=== PATIENT | male | born 1940 | race Caucasian/White ===

== ENCOUNTER 2016-12-10 13:16 | Emergency (ER) | payer MEDICARE, OTHER ==
[2016-12-10 13:31] VITALS: BP 161/60
--- NOTE | 2016-12-10 14:54 | XRAY Preliminary Report ---
Exam: XR Knee 4 View RT IMPRESSION: No significant new or acute bony abnormality. [facility] SITE ID: [id number]
--- NOTE | 2016-12-10 15:02 | XRAY Report ---
EXAM: RIGHT KNEE RADIOGRAPHY EXAM DATE: 12/10/2016 02:37 PM. CLINICAL HISTORY: Medial femoral condyle pain since direct trauma to the knee 10 days ago. COMPARISON: 01/19/2007. TECHNIQUE: 4 views. FINDINGS: Bones: Normal. No fractures or bone lesions. Joints: Normal. No effusion. No subluxations. Soft Tissues: Interval resolution of distal quadriceps tendon edema. Interval development of large reactive osteoph yte inferior patella tendon insertion anterior tibial apophysis due to remote mechanical stress. IMPRESSION: No significant nor acute bony abnormality. [facility] Referring Provider Line: [phone] SITE ID: [id number]
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
--- NOTE | 2016-12-10 15:14 | ED Physician Documentation ---
PD HPI LOWER EXT INJURY - Stated complaint Stated Complaint: R KNEE,SHLDR, ANKLE INJURY - Chief complaint Chief Complaint: Ext Problem - History obtained from History obtained from: Patient - History of Present Illness PD HPI LOW EXT INJURY LOCATION: Right, Knee Type of injury: Fall Where injury occurred: Home Timing - onset: How many weeks ago (1) Timing - duration: Weeks (1) Timing - details: Abrupt onset, Still present Improved by: Rest, Immobilization Worsened by: Moving, Palpating Associated symptoms: Swelling. No: Weakness, Numbness Contributing factors: No: Anticoagulated Similar symptoms before: Has not had sx before Recently seen: Not recently seen PD PAST MEDICAL HISTORY - Past Medical History Past Medical History: Yes Cardiovascular: Hypertension, High cholesterol Endocrine/Autoimmune: Type 2 diabetes HEENT: Chronic vision loss Psych: Post traumatic stress disorder - Past Surgical History Past Surgical History: Yes HEENT: Tonsil/Adenoidectomy - Present Medications Home Medications: Ambulatory Orders Medication Instructions Recorded Confirmed Aspirin [Aspir 81] 81 mg PO 07/18/13 07/18/13 Atenolol 25 mg PO DAILY 07/18/13 07/18/13 Atorvastatin [Lipitor] 07/18/13 07/18/13 buPROPion [Wellbutrin Sr] 1 tab DAILY 07/18/13 07/18/13 - Allergies Allergies/Adverse Reactions: Allergies Allergy/AdvReac Type Severity Reaction Status Date / Time influenza virus vaccine, AdvReac Severe Unknown Verified 12/10/16 13:31 specific [Influenza Virus Vacc,Specific] - Social History Does the pt smoke?: Yes Smoking Status: Current every day smoker Does the pt drink ETOH?: Yes Does the pt have substance abuse?: No - Immunizations Immunizations are current?: No Results - Vitals Vitals: Vital Signs - 24 hr 12/10/16 13:26 Temperature 36.7 C Heart Rate 69 Respiratory 18 Rate Blood Pressure 161/60 H O2 Saturation 98 Oxygen O2 Source Room air Departure - Departure Disposition: 01 Home, Self Care Clinical Impression: Right knee sprain Qualifiers: Encounter type: initial encounter Involved ligament of knee: unspecified ligament Qualified Code(s): S83.91XA - Sprain of unspecified site of right knee , initial encounter Condition: Stable Instructions: ED Sprain Knee Follow-Up: [facility] [Provider Group]
== END 2016-12-10 15:17 | disposition home or self-care (01) ==
LOC: ED 13:16
DX: S83.91XA Sprain of unspecified site of right knee, initial encounter (principal); W17.89XA Other fall from one level to another, initial encounter; Y92.017 Garden or yard in single-family (private) house as the place of occurrence of the external cause; I10 Essential (primary) hypertension; E78.00 Pure hypercholesterolemia, unspecified; E11.9 Type 2 diabetes mellitus without complications; Z79.82 Long term (current) use of aspirin; F17.200 Nicotine dependence, unspecified, uncomplicated
CPT/HCPCS: 29530; 99283

== ENCOUNTER 2017-03-21 08:55 | Outpatient (CLI) | payer OTHER ==
--- NOTE | 2017-03-21 16:23 | MRI Report ---
EXAM: MR ABDOMEN WITHOUT CONTRAST (MR ADRENALS) EXAM DATE: 03/21/2017 09:06 AM. CLINICAL HISTORY: Small left adrenal nodule seen on CT. COMPARISON: CT abdomen pelvis 07/16/2016 from [facility]. TECHNIQUE: Multiplanar breath-hold T1 and T2 sequences obtained through the adrenals and abdomen on a n MR scanner. Thin-section, in-phase and [id number] sequence obtained through the adrenal glands. N o intravenous contrast given. FINDINGS: Adrenal Glands: Right: Normal. Left: Stable 9 mm thickening of the body. There is considerable signal loss on opposed-phase gradient echo compatible with presence of intralesional lipid. No suspicious features identified. Liver: Few discrete tiny T2 hyperintensities in segment 4A, likely cysts or hemangiomas. A tiny cyst in segment 6. Decreased parenchymal signal on opposed-phase gradient echo suggests mild steatosis. Th e dome is incompletely imaged. Gallbladder/Bile Ducts: No filling defect or gallbladder wall thickening. No ductal dilatation. Pancreas: No gross abnormality identified. Spleen: No splenomegaly. Small accessory splenule is Kidneys: Normal size without hydronephrosis or obviously suspicious lesion. Other: No obstruction or acute intestinal abnormality identified. No free fluid. No abdominal aortic aneurysm. IMPRESSION: 1. Consistent with a small lipid-rich left adrenal adenoma. Normal right adrenal. 2. Mild hepatic steatosis. Tiny liver cysts and/or hemangiomas. [facility] Referring Provider Line: [phone] SITE ID: [id number]
== END 2017-03-21 08:56 | disposition home or self-care (01) ==
LOC: DI 08:55
PROVIDERS: ATTEND Nurse Practitioner Adult Health
DX: R93.5 Abnormal findings on diagnostic imaging of other abdominal regions, including retroperitoneum (principal); K76.0 Fatty (change of) liver, not elsewhere classified; K76.89 Other specified diseases of liver
CPT/HCPCS: 74181

== ENCOUNTER 2019-12-25 09:48 | Emergency (ER) | payer OTHER ==
[2019-12-25] MEDS ORDERED: ACETAMINOPHEN 325 MG TABLET PO STA (10:56)
[2019-12-25] MEDS ORDERED: LIDOCAINE 2% 50 ML MDV SUBQ STA ×2 (11:17→12:17)
[2019-12-25] MEDS ORDERED: LIDOCAINE-MPF 2% 5 ML VIAL SUBQ STA (11:20)
--- NOTE | 2019-12-25 11:34 | XRAY Report ---
PROCEDURE: Finger(s) LT INDICATIONS: thumb injury, log splitter TECHNIQUE: AP hand, 2 views of the first finger(s) acquired. COMPARISON: None FINDINGS: Bones: There is a comminuted fracture with moderate displacement involving the distal aspect of the distal phalanx of the thumb. No additional fractures can be seen. Age-appropriate degenerative changes are seen. No suspicious lytic or blastic lesions are seen. Soft tissues: Associated soft tissue injury is seen. IMPRESSION: Comminuted, moderately displaced fracture of the distal aspect of the distal phalanx of the thumb. Reviewed by: Fish Velazquez MD on 12/25/2019 10:32 AM МАРИНА Approved by: Fish Velazquez MD on 12/25/2019 10:32 AM МАРИНА Station ID: [id number]
[2019-12-25] MEDS ORDERED: LIDOCAINE-MPF 2% 5 ML VIAL ONE (12:28)
[2019-12-25] MEDS ORDERED: MUPIROCIN 2% OINT 1 GM TOP STA (12:36)
[2019-12-25] MEDS ORDERED: cephALEXin 250 MG CAPSULE PO STA (12:36)
--- NOTE | 2019-12-25 12:41 | ED Physician Documentation ---
PD HPI UPPER EXT INJURY - Stated complaint Stated Complaint: R THUMB LAC - Chief complaint Chief Complaint: Ext Problem - History obtained from History obtained from: Patient - History of Present Illness Location: Right, Finger (thumb) Type of injury: Crush (he got tip of thumb caught in log splitter, with lifting of the nail and pain at the tip of thumb. He put tight bandage on it and left it until today. Today noted the nailbed distorted and some bleeding after taking bandage off, and tip seems distorted. No purulence.) Where injury occurred: Home (2 days ago) Timing - onset: How many days ago (2) Timing - duration: Days (2) Timing - details: Abrupt onset Worsened by: Moving, Palpating Associated symptoms: Numbness (at tip of the thumb.), Swelling. No: Weakness Contributing factors: No: Anticoagulated Similar symptoms before: Has not had sx before Review of Systems Constitutional: denies: Fever, Chills Nose: denies: Rhinorrhea / runny nose, Congestion Throat: denies: Sore throat Respiratory: denies: Cough Skin: reports: Laceration (s) (end of right thumb) PD PAST MEDICAL HISTORY - Past Medical History Cardiovascular: Hypertension, High cholesterol Endocrine/Autoimmune: Type 2 diabetes HEENT: Chronic vision loss Psych: Post traumatic stress disorder - Past Surgical History Past Surgical History: Yes HEENT: Tonsil/Adenoidectomy - Present Medications Home Medications: Ambulatory Orders Medication Instructions Recorded Confirmed Aspirin [Aspir 81] 81 mg PO 07/18/13 07/18/13 Atorvastatin [Lipitor] 07/18/13 07/18/13 atenoloL [Atenolol] 25 mg PO DAILY 07/18/13 07/18/13 buPROPion [Wellbutrin Sr] 1 tab DAILY 07/18/13 07/18/13 Cephalexin [Keflex] 500 mg PO TID #21 capsule 12/25/19 Mupirocin 1 applic TP TID #15 g 12/25/19 - Allergies Allergies/Adverse Reactions: Allergies Allergy/AdvReac Type Severity Reaction Status Date / Time influenza virus vaccine, AdvReac Severe Unknown Verified 12/25/19 10:14 specific [Influenza Virus Vacc,Specific] - Social History Does the pt smoke?: Yes Smoking Status: Current every day smoker Does the pt drink ETOH?: Yes Does the pt have substance abuse?: No - Immunizations Immunizations are current?: No PD ED PE NORMAL - Vitals Vital signs reviewed: Yes - General General: Alert and oriented X 3, Well developed/nourished - Derm Derm: Warm and dry - Extremities Extremities: Other (right thumb with laceration on dorsal aspect through base of nailbed. There is blood under the nail and looseness of the nail on the bed. There is distal swelling. The very tip of thumb seems to tip palmar a bit. Good color of the tip, but decreased sensation. He is able to flex/extend at IP joint. ) - Neuro Neuro: Alert and oriented X 3, No motor deficit Results - Vitals Vitals: Vital Signs - 24 hr 12/25/19 12/25/19 10:02 13:10 Temperature 36.8 C Heart Rate 60 55 L Respiratory 18 18 Rate Blood Pressure 163/56 H 162/59 H O2 Saturation 99 99 Oxygen O2 Source Room air - Rads (name of study) right thumb xray Radiology: Prelim report reviewed (distal phalanx fracture. No involvement at the IP. No FB. Soft tissue swelling noted. ), See rad report Procedures - Laceration (location) right distal thumb Length in cm: 2 Wound type: Curved, Into subcut fat, Clean Neurovascular status: Motor intact, Vascular intact. No: Sensory intact (less at tip of thumb, normal on palmar pad.) Tendon involvement: Tendon intact Anesthesia: Lidocaine 2% (digital block) Wound Preparation: Irrigated copiously NS (I lifted the loose nail and cleansed the nailbed well. No FB seen. Trimmed rough skin edges. I then tucked the nail back into nychial fold and sutured the nail proximally to anchor it. The edges of the nailbed sutured for alignment. The shape of the thumb was returned to normal appearance.) Skin layer closure: Nylon, Interrupted, Size #-0 - enter number (4), Sutures - enter # (5) Other: Patient tolerated well, No complications, Tetanus UTD Complexity: Simple PD MEDICAL DECISION MAKING - ED course Complexity details: reviewed results, considered differential, d/w patient Departure - Departure Disposition: 01 Home, Self Care Clinical Impression: Thumb laceration Qualifiers: Encounter type: initial encounter Damage to nail status: with damage Foreign body presence: without foreign body Laterality: right Qualified Code(s): S61.111A - Laceration without foreign body of right thumb with damage to nail, initial encounter Phalanx, distal fracture of finger Qualifiers: Encounter type: initial encounter Finger: thumb Fracture type: open Fracture alignment: displaced Laterality: right Qualified Code(s): S62.521B - Displaced fracture of distal phalanx of right thumb, initial encounter for open fracture Condition: Stable Record reviewed to determine appropriate education?: Yes Instructions: ED Fx Finger Open Follow-Up: Mook Constantino MD [Provider Admit Priv/Credential] - Prescriptions: Cephalexin [Keflex] 500 mg PO TID #21 capsule Mupirocin 1 applic TP TID #15 g Comments: it is okay to wash and shower. Clean off the wound twice a day with soap and water, or peroxide and water. Apply some antibiotic ointment to it to keep it moist. Also to watch for signs of infection such as purulence, redness or increasing pain. Return to your primary care or the ER at the specified time for suture removal. Suture removal in 10-14 days. You will lose this fingernail as it is completely loosened, but it is sutured in place in order to hold structure and shape for the healing tissue right now. A new fingernail is likely to grow back in subsequently. Use topical antibiotic mupirocin lightly to the wound once or twice daily. Tylenol/ ibuprofen as needed for pains. Cephalexin antibiotic as directed for a week. Use the finger splint as needed for protection and comfort. Follow-up with your primary care or orthopedics to ensure the end of the thumb is healing up adequately. Recheck if signs of infection. Discharge Date/Time: 12/25/19 13:10
[2019-12-25 13:11] VITALS: BP 162/59
== END 2019-12-25 13:10 | disposition home or self-care (01) ==
LOC: ED 09:48
DX: S62.521B Displaced fracture of distal phalanx of right thumb, initial encounter for open fracture (principal); W31.89XA Contact with other specified machinery, initial encounter; Y93.89 Activity, other specified; Y92.009 Unspecified place in unspecified non-institutional (private) residence as the place of occurrence of the external cause; I10 Essential (primary) hypertension; E11.9 Type 2 diabetes mellitus without complications; F17.200 Nicotine dependence, unspecified, uncomplicated
CPT/HCPCS: 11760; 73140; 99283; A9270

== ENCOUNTER 2020-01-05 12:26 | Emergency (ER) | payer OTHER ==
[2020-01-05 12:39] VITALS: BP 123/49
--- NOTE | 2020-01-05 12:57 | ED Physician Documentation ---
History of Present Illness - Stated complaint Stated Complaint: STITCH REMOVAL - Chief complaint Chief Complaint: Laceration - History obtained from History obtained from: Patient, Other (chart) - Additonal information Additional information: 79-year-old male returns to the emergency department for suture removal and evaluation of a right thumb injury. He was seen in this emergency department 11 days ago after a crush injury to the right thumb that was sustained during use of a log splitter. The injury included elevation of the nailbed and subsequent x-ray showed a distal phalanx fracture. The provider at the time closed the wound and sutured the nailbed to the wound. The patient misunderstood and lost his discharge instructions and did not remove the initial dressing at all. He did however complete a course of Keflex. Patient denies any fevers but reports that he feels like his thumb is asleep. Review of Systems Constitutional: reports: Reviewed and negative Ears: reports: Reviewed and negative Nose: reports: Reviewed and negative Throat: reports: Reviewed and negative Cardiac: reports: Reviewed and negative Respiratory: reports: Reviewed and negative GI: reports: Reviewed and negative : reports: Reviewed and negative Musculoskeletal: reports: Extremity pain (right thumb) Neurologic: reports: Reviewed and negative PD PAST MEDICAL HISTORY - Past Medical History Cardiovascular: Hypertension, High cholesterol Endocrine/Autoimmune: Type 2 diabetes HEENT: Chronic vision loss Psych: Post traumatic stress disorder - Past Surgical History Past Surgical History: Yes HEENT: Tonsil/Adenoidectomy - Present Medications Home Medications: Ambulatory Orders Medication Instructions Recorded Confirmed Aspirin [Aspir 81] 81 mg PO 07/18/13 07/18/13 Atorvastatin [Lipitor] 07/18/13 07/18/13 atenoloL [Atenolol] 25 mg PO DAILY 07/18/13 07/18/13 buPROPion [Wellbutrin Sr] 1 tab DAILY 07/18/13 07/18/13 Cephalexin [Keflex] 500 mg PO TID #21 capsule 12/25/19 Mupirocin 1 applic TP TID #15 g 12/25/19 - Allergies Allergies/Adverse Reactions: Allergies Allergy/AdvReac Type Severity Reaction Status Date / Time influenza virus vaccine, AdvReac Severe Unknown Verified 01/05/20 12:35 specific [Influenza Virus Vacc,Specific] - Social History Does the pt smoke?: Yes Smoking Status: Current every day smoker Does the pt drink ETOH?: Yes Does the pt have substance abuse?: No - Immunizations Immunizations are current?: No PD ED PE EXPANDED - Extremities Extremities: Right finger(s) (Right thumb mildly swollen at DIP and beyond. 5 sutures are noted in place and were easily removed. The skin proximal to the nailbed is somewhat macerated with a clear mucoid eschar that smells foul. The nail itself is ecchymotic but firmly attached to the nail bed. + flexion/extens ion at DIP ) Results - Vitals Vitals: Vital Signs - 24 hr 01/05/20 12:35 Temperature 37.1 C Heart Rate 52 L Respiratory 16 Rate Blood Pressure 123/49 L O2 Saturation 97 Oxygen O2 Source Room air - Rads (name of study) right thumb Radiology: Final report received (Improved anatomic alignment of the distal tuft comminuted fracture from 11 days ago with imaging not showing callus bridging the fracture margins at this time. Follow-up as anticipated) PD MEDICAL DECISION MAKING - ED course Complexity details: reviewed results, re-evaluated patient, considered differential, d/w patient ED course: 79-year-old male presents to the emergency department to have the sutures removed from the crush injury of his right thumb sustained 11 days ago. He did have an associated tuft fracture of that thumb. Unfortunately the original dressing was left in place but patient did complete a full course of antibiotics. On reevaluation he does have good function of the thumb. Though it is tender and swollen, it is not erythematous and he has had no fevers will defer further antibiotics at this time. Will recommend this gentleman wash the thumb daily with warm soap and water and apply antibiotic ointment. I will write a referral for him to be seen in orthopedics in follow-up. And a temporary thumb splint was also provided for protection of the fracture Departure - Departure Disposition: 01 Home, Self Care Clinical Impression: Visit for suture removal Phalanx, distal fracture of finger Qualifiers: Encounter type: sequela Finger: thumb Fracture type: open Fracture alignment: displaced Laterality: right Qualified Code(s): S62.521S - Displaced fracture of distal phalanx of right thumb, sequela Follow-Up: [facility] [Provider Group] Comments: The x-ray of your thumb shows better alignment of the fracture. I would like you to start gently washing the thumb every day with warm soap and water and then applying antibiotic ointment over your wound. I would like you to wear the thumb splint provided for protection. I would like you to schedule close follow-up with the orthopedics department for reevaluation of this thumb wound and fracture. I also recommend close follow-up with your primary care doctor to ensure the wound is healing normally. If you develop fevers, have increased pain any milky drainage or concerns of infection return to the ER for a second look
--- NOTE | 2020-01-05 13:34 | XRAY Report ---
PROCEDURE: Finger(s) RT INDICATIONS: fx, wound healing TECHNIQUE: AP hand, 3 views of the first finger(s) acquired. COMPARISON: Prior right hip plain films 12/25/2019. Please note that the original imaging from 12/24 was incorrectly labeled "left" which is being corrected. FINDINGS: Bones: No fractures or dislocations. No suspicious bony lesions. Note is made of the right hand fi rst digit distal phalanx tuft fracture malalignment being improved, from the comparison 11 days ago. No callus bridging the fracture planes is yet present. Soft tissues: No suspicious soft tissue calcifications. IMPRESSION: Improved anatomic alignment of the distal tuft comminuted fracture from 11 days ago, right thumb, wit h imaging not showing callus bridging the fracture margins at this time. Follow-up is anticipated. Note: Original plain films 11 days ago were mislabeled as representing the left hand. This is being c orrected. Reviewed by: Julito Zhou MD on 01/05/2020 1:32 PM PDT Approved by: Julito Zhou MD on 01/05/2020 1:32 PM PDT Station ID: [id number]
== END 2020-01-05 14:11 | disposition home or self-care (01) ==
LOC: ED 12:26
DX: S62.521D Displaced fracture of distal phalanx of right thumb, subsequent encounter for fracture with routine healing (principal); W31.89XD Contact with other specified machinery, subsequent encounter; I10 Essential (primary) hypertension; E11.9 Type 2 diabetes mellitus without complications; F17.200 Nicotine dependence, unspecified, uncomplicated
CPT/HCPCS: 73140; 99281; 99283

== ENCOUNTER 2020-05-30 10:28 | Outpatient (CLI) | payer MEDICARE, OTHER ==
[2020-05-30 15:10] LABS: BASOPHILS % (AUTO) 0.4 %; EOSINOPHILS # (AUTO) 0.1 10^3/uL (0.0-0.7); EOSINOPHILS % (AUTO) 1.8 %; HCT - HEMATOCRIT 45.3 % (42.0-52.0); HGB - HEMOGLOBIN 14.1 g/dL (14.0-18.0); LYMPHOCYTES % (AUTO) 28.4 %; MEAN CORPUSCULAR HEMOGLOBIN 30.5 pg (27.0-31.0); MEAN CORPUSCULAR HGB CONC 31.1 g/dL (32.0-36.0); MEAN CORPUSCULAR VOLUME 97.8 fL (80.0-94.0); MEAN PLATELET VOLUME 11.4 fL (7.4-11.4); MONOCYTES # (AUTO) 0.9 10^3/uL (0.0-1.0); NEUTROPHILS % (AUTO) 56.1 %; PLT - PLATELET COUNT 216 10^3/uL (130-450); RED BLOOD COUNT 4.63 10^6/uL (4.70-6.10); RED CELL DISTRIBUTION WIDTH 12.4 % (12.0-15.0); WHITE BLOOD COUNT 7.2 x10^3/uL (4.8-10.8)
[2020-05-30 15:47] LABS: ALBUMIN 4.1 g/dL (3.2-5.5); ALBUMIN/GLOBULIN RATIO 1.9 (1.0-2.2); ALKALINE PHOSPHATASE 215 IU/L (42-121); ALT ALANINE AMINOTRANSFERASE 21 IU/L (10-60); AST ASPARTATE AMINOTRANSFERASE 20 IU/L (10-42); BILIRUBIN,TOTAL 1.3 mg/dL (0.2-1.0); BUN - BLOOD UREA NITROGEN 18 mg/dL (6-20); CALCIUM 9.2 mg/dL (8.5-10.3); CARBON DIOXIDE - CO2 29 mmol/L (21-32); CHLORIDE 104 mmol/L (101-111); CHOL/HDL RATIO 2.5 (<5.0); CHOLESTEROL 160 mg/dL; CREATININE 0.6 mg/dL (0.6-1.2); GFR - MDRD 130 (>89); GLUCOSE 134 mg/dL (70-100); HDL CHOLESTEROL 63 mg/dL; LDL CHOLESTEROL,CALCULATED 85 mg/dL; LDL/HDL RATIO 1.3 (<3.6); POTASSIUM 4.2 mmol/L (3.5-5.0); SODIUM 141 mmol/L (135-145); TOTAL PROTEIN 6.3 g/dL (6.7-8.2); TRIGLYCERIDES 61 mg/dL; VLDL CHOLESTEROL 12 mg/dL
[2020-05-30 19:02] LABS: ESTIMATED AVERAGE GLUCOSE 134 mg/dL (70-100); HEMOGLOBIN A1c% 6.3 % (4.27-6.07)
== END 2020-05-30 10:29 | disposition home or self-care (01) ==
LOC: LAB.S 10:28
PROVIDERS: ATTEND Internal Medicine
DX: I10 Essential (primary) hypertension (principal); E11.9 Type 2 diabetes mellitus without complications; Z12.5 Encounter for screening for malignant neoplasm of prostate
CPT/HCPCS: 36415; 80053; 80061; 83036; 85025; G0103; 83721; 84153

== ENCOUNTER 2020-06-22 14:51 | Outpatient (CLI) | payer MEDICARE, OTHER ==
[2020-06-22] MEDS ORDERED: IOPAMIDOL-300 50 ML VIAL ONE (15:32)
[2020-06-22] MEDS ORDERED: IOPAMIDOL-300 100 ML VIAL ONE (15:32)
[2020-06-22] MEDS ORDERED: IOPAMIDOL-300 50 ML VIAL PO ONE (20:34)
[2020-06-22] MEDS ORDERED: IOPAMIDOL-300 100 ML VIAL IVP ONE (20:34)
--- NOTE | 2020-06-23 11:05 | CT Report ---
PROCEDURE: PELVIS W INDICATIONS: PROSTATE CA CONTRAST: Oral and nonionic intravenous. TECHNIQUE: After the administration of nonionic contrast, 5 mm thick sections acquired from the iliac crests to the symphysis. 5 mm thick coronal and sagittal reformats were acquired. For radiation dose reductio n, the following was used: automated exposure control, adjustment of mA and/or kV according to patie nt size. COMPARISON: CT abdomen/pelvis with contrast 07/26/2016. FINDINGS: Image quality: Excellent. Peritoneum and bowel: Contrast enhanced bowel loops demonstrate normal wall thickness and caliber. No free fluid or air. Genitourinary: Bladder wall thickness is normal. Nodes and vessels: There are several mildly prominent left-sided periaortic lymph nodes distally, and within the presacral fat of the extraperitoneal space near the rectum there is a 1.4 cm AP 8mm trans verse enhancing lymph node suspicious for early metastatic disease, 05/31. At the right internal iliac node chain, 06/03, there is a hyperenhancing no which measures up to 1.2 cm AP and 1.6 cm transverse, likely involved with metastatic infiltration given the hyperenhancement pattern. An additional enhan cing node lies between the left external iliac artery and vein at the lower pelvic level seen on CT s eries 3 image 26. Iliac vessels demonstrate normal size and enhancement. Bones: Numerous bone lesions are present ranging from several millimeters to 3 x 5 cm, within the pel vis and lumbosacral spine. No osteolytic lesion is found. These lesions are osteoblastic.. Miscellaneous: No inguinal hernias. 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 No impen ding pathologic fracture is found. There are enlarged, rounded, and hyperenhancing lymph nodes scattered in several areas of the pelvic ravi chains. Ravi metastatic disease is likely present given this appearance. None of these nodes a ppear amenable to safe CT-guided biopsy. Reviewed by: Julito Zhou MD on 06/23/2020 11:04 AM PDT Approved by: Julito Zhou MD on 06/23/2020 11:04 AM PDT Station ID: [id number]
== END 2020-06-22 14:52 | disposition home or self-care (01) ==
LOC: DI 14:51
PROVIDERS: ATTEND Internal Medicine
DX: C61 Malignant neoplasm of prostate (principal); C79.51 Secondary malignant neoplasm of bone
CPT/HCPCS: 72193; Q9967

== ENCOUNTER 2020-09-08 18:30 | Outpatient (CLI) | payer MEDICARE, OTHER ==
--- NOTE | 2020-09-08 19:28 | Ultrasound Report ---
PROCEDURE: Duplex Ext Veins Right INDICATIONS: RLE SWELLING AND PAIN TECHNIQUE: Real-time imaging, as well as color and pulse Doppler interrogation, were performed of the lower extr emity deep veins from the inguinal ligament to the popliteal fossa. COMPARISON: None. FINDINGS: The deep veins are normally compressible, and free of intraluminal thrombus. Color and pu lse Doppler demonstrate normal phasic intraluminal flow. There is normal augmentation response to di stal compression maneuver. IMPRESSION: 1. No evidence of deep venous thrombosis in the right lower extremity. Reviewed by: Dawit Lares MD on 09/08/2020 7:26 PM PDT Approved by: Dawit Lares MD on 09/08/2020 7:26 PM PDT Station ID: [id number]
== END 2020-09-08 18:31 | disposition home or self-care (01) ==
LOC: DI 18:30
PROVIDERS: ATTEND Internal Medicine Hematology & Oncology
DX: R22.41 Localized swelling, mass and lump, right lower limb (principal); M79.661 Pain in right lower leg; C61 Malignant neoplasm of prostate; C79.9 Secondary malignant neoplasm of unspecified site

== ENCOUNTER 2020-12-18 13:38 | Outpatient (CLI) | payer MEDICARE, OTHER ==
--- NOTE | 2020-12-18 17:08 | DEXA Report ---
PROCEDURE: Dexa Spine and/or Hip INDICATIONS: HX OF CA TECHNIQUE: Dual energy x-ray absorptiometry (DXA) was performed on a [employer] System. Regions measur ed are the AP Spine, femoral neck, and if needed forearm. COMPARISON: None. FINDINGS: Lumbar Spine: Bone Mineral Density 1.870 g/cm/cm,T score 5.4, normal Left Hip: Bone Mineral Density 0.961 g/cm/cm,T score -1.0, normal Left Femoral Neck: Bone Mineral Density 0.884 g/cm/cm, T score -1.4, mild osteopenia (T score greater or equal to -1.0: NORMAL) (T score from -1.1 to -2.4: OSTEOPENIA) (T score less than or equal to -2.5 to: OSTEOPOROSIS) Impression: Mild osteopenia within the left femoral neck, borderline osteopenia in the left hip. Patients with diagnosis of osteoporosis or osteopenia should have regular bone mineral density assess ment. For those eligible for Medicare, routine testing is allowed once every 2 years. Testing frequ ency can be increased for patients who have rapidly progressing disease or for those who are receivin g medical therapy to restore bone mass. Reviewed by: Renae Roa MD on 12/18/2020 5:07 PM PDT Approved by: Renae Roa MD on 12/18/2020 5:07 PM PDT Station ID: [id number]
== END 2020-12-18 13:39 | disposition home or self-care (01) ==
LOC: DI 13:38
PROVIDERS: ATTEND Internal Medicine Hematology & Oncology
DX: C61 Malignant neoplasm of prostate (principal); C79.51 Secondary malignant neoplasm of bone; Z79.818 Long term (current) use of other agents affecting estrogen receptors and estrogen levels; M85.88 Other specified disorders of bone density and structure, other site

== ENCOUNTER 2020-12-22 21:06 | Outpatient (CLI) | payer MEDICARE, OTHER | END 2020-12-22 21:07 | disposition critical access hospital (66) | LOC: EMS 21:06 | DX: S49.92XA Unspecified injury of left shoulder and upper arm, initial encounter (principal); W10.9XXA Fall (on) (from) unspecified stairs and steps, initial encounter; Y92.009 Unspecified place in unspecified non-institutional (private) residence as the place of occurrence of the external cause | CPT/HCPCS: A0425; A0429 ==

== ENCOUNTER 2020-12-22 22:17 | Emergency (ER) | payer MEDICARE, OTHER ==
[2020-12-22] MEDS ORDERED: MORPHINE 2 MG/ML CARPUJECT IVP STA (22:36)
[2020-12-22] MEDS ORDERED: TETANUS/DIPHTHERIA/PERTUSSIS 0.5 ML SYRINGE IM ONE (22:36)
[2020-12-22] MEDS ORDERED: BACITRACIN ZINC OINT 1 PACKET TOP STA (22:36)
[2020-12-22 22:43] LABS: BASOPHILS % (AUTO) 0.2 %; EOSINOPHILS % (AUTO) 0.2 %; HCT - HEMATOCRIT 43.5 % (42.0-52.0); HGB - HEMOGLOBIN 14.2 g/dL (14.0-18.0); LYMPHOCYTES # (AUTO) 1.3 10^3/uL (1.5-3.5); LYMPHOCYTES % (AUTO) 8.9 %; MEAN CORPUSCULAR HEMOGLOBIN 31.2 pg (27.0-31.0); MEAN CORPUSCULAR HGB CONC 32.6 g/dL (32.0-36.0); MEAN CORPUSCULAR VOLUME 95.6 fL (80.0-94.0); MEAN PLATELET VOLUME 11.1 fL (7.4-11.4); MONOCYTES # (AUTO) 1.3 10^3/uL (0.0-1.0); MONOCYTES % (AUTO) 8.9 %; NEUTROPHILS # (AUTO) 11.3 10^3/uL (1.5-6.6); NEUTROPHILS % (AUTO) 80.1 %; PLT - PLATELET COUNT 211 10^3/uL (130-450); RED BLOOD COUNT 4.55 10^6/uL (4.70-6.10); RED CELL DISTRIBUTION WIDTH 12.1 % (12.0-15.0); WHITE BLOOD COUNT 14.1 x10^3/uL (4.8-10.8)
[2020-12-22] MEDS ORDERED: IOVERSOL 320 100 ML VIAL IVP ONE (22:45)
[2020-12-22 22:52] LABS: ALBUMIN 4.4 g/dL (3.2-5.5); BILIRUBIN,TOTAL 0.8 mg/dL (0.2-1.0); CALCIUM 8.9 mg/dL (8.5-10.3); CREATININE 0.8 mg/dL (0.6-1.2); ETOH - ETHANOL 179.3 mg/dL; INR 1.1 (0.8-1.2); PT - PROTHROMBIN TIME 11.8 secs (9.9-12.6); TOTAL PROTEIN 6.6 g/dL (6.7-8.2)
[2020-12-22 22:59] LABS: PARTIAL THROMBOPLASTIN TIME 29.6 secs (24.9-33.3)
[2020-12-22] MEDS ORDERED: SODIUM CHLORIDE 0.9% 1,000 ML IV STA (23:20)
--- NOTE | 2020-12-22 23:48 | CT Report ---
PROCEDURE: HEAD WO INDICATIONS: Head trauma, mod-severe TECHNIQUE: Noncontrast 4.5 mm thick angled axial sections acquired from the foramen magnum to the vertex. For r adiation dose reduction, the following was used: automated exposure control, adjustment of mA and/or kV according to patient size. COMPARISON: None FINDINGS: Image quality: Excellent. CSF spaces: Basal cisterns are patent. No extra-axial fluid collections. The ventricles are symmet yobani in size and shape. Brain: No intracranial bleeds or masses. There is cerebral volume loss for age, with resultant vent ricular and sulcal prominence. There are periventricular and deep white matter chronic small vessel ischemic changes. There is intracranial internal carotid artery and vertebral artery atherosclerosis . Skull and face: Calvarium and visualized facial bones appear intact, without suspicious lesions. Sinuses: Mild mucosal thickening in the maxillary sinuses bilaterally and scattered throughout the et hmoid air cells. 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 The mastoids are clear. IMPRESSION: No acute intracranial disease process. Reviewed by: Alyssa Morris MD, PhD on 12/22/2020 11:46 PM PDT Approved by: Alyssa Morris MD, PhD on 12/22/2020 11:46 PM PDT Station ID: [id number]
--- NOTE | 2020-12-22 23:52 | CT Report ---
PROCEDURE: CHEST W INDICATIONS: Chest trauma, penetrating CONTRAST: IV CONTRAST: Optiray 320 ml: 100 PO CONTRAST: *NO PO CONTRAST TECHNIQUE: After the administration of intravenous contrast, 1 mm axial images were acquired from the pulmonary apices through the posterior costophrenic angles. Axial 5 mm soft tissue kernel reconstructions were performed as well as 8 mm axial MIP and coronal and sagittal 5 mm reformations. For radiation dose reduction, the following was used: automated exposure control, adjustment of mA and/or kV according to patient size. COMPARISON: None. FINDINGS: Image quality: Excellent. Lungs and pleura: No acute air space opacities. No pleural effusions or pneumothorax. Central and peripheral airways are patent and normal in caliber. Mediastinum: Heart size is normal. Atherosclerotic calcifications noted in the aorta, great vessels and coronary vasculature. No pericardial effusion. No mediastinal or hilar adenopathy by size crite tawana. Thoracic aorta and central pulmonary arteries are normal in size. Esophagus is normal in calib er. No hiatal hernia. Bones and chest wall: Numerous sclerotic lesions scattered throughout the osseous skeleton compatible with osseous metastatic disease No vertebral body compression fractures. Spine degenerative disc dis ease and facet arthropathy are noted. No axillary or supraclavicular adenopathy by size criteria. T he thyroid is normal in size and there are no incidental findings.. Abdomen: Visualized upper abdominal solid organs appear normal. Upper abdominal bowel loops are nor mal in caliber. IMPRESSION: 1. Displaced fracture of the proximal left humerus. No additional acute traumatic injury. 2. Diffuse osseous metastatic disease. Reviewed by: Alyssa Morris MD, PhD on 12/22/2020 11:51 PM PDT Approved by: Alyssa Morris MD, PhD on 12/22/2020 11:51 PM PDT Station ID: [id number]
--- NOTE | 2020-12-22 23:55 | CT Report ---
PROCEDURE: CERVICAL SPINE WO INDICATIONS: Neck trauma, midline tenderness TECHNIQUE: Noncontrast 3 mm thick sections acquired from the skull base to the T4 level. Sagittal and coronal r eformats were then constructed. For radiation dose reduction, the following was used: automated exp osure control, adjustment of mA and/or kV according to patient size. COMPARISON: None. FINDINGS: Image quality: Excellent. Bones: No fractures or dislocations. Visualized superior ribs are intact. Numerous sclerotic lesion s scattered throughout the visualized osseous skeleton. Spine degenerative disc disease and facet art hropathy are noted. Soft tissues: Prevertebral soft tissues are normal in thickness. No paravertebral hematomas. No ap ical pneumothoraces. IMPRESSION: 1. No fracture. No acute osseous lesion. If there is continued clinical concern for pathology, then M RI should be considered for further evaluation. 2. Diffuse osseous metastatic disease. Reviewed by: Alyssa Morris MD, PhD on 12/22/2020 11:54 PM PDT Approved by: Alyssa Morris MD, PhD on 12/22/2020 11:54 PM PDT Station ID: [id number]
--- NOTE | 2020-12-22 23:59 | CT Report ---
PROCEDURE: Abdomen/Pelvis W INDICATIONS: Abdominal trauma, blunt CONTRAST: IV CONTRAST: Optiray 320 ml: 100 PO CONTRAST: *NO PO CONTRAST TECHNIQUE: After the administration of IV contrast, 5 mm thick sections acquired from the diaphragms to the symp hysis. 5 mm thick coronal and sagittal reformats were acquired. For radiation dose reduction, the f ollowing was used: automated exposure control, adjustment of mA and/or kV according to patient size. COMPARISON: 05/12/2015.. FINDINGS: Image quality: Excellent. ABDOMEN: Lung bases: Lung bases are clear. Heart size is normal. Solid organs: Liver and spleen are normal in size and enhancement. Punctate calcifications in the sp pal compatible with sequela of prior granulomatous disease. Gallbladder is within normal limits. B iliary system is non dilated. Pancreas enhances normally. No adrenal nodules. Kidneys demonstrate normal size and enhancement, without hydronephrosis. Peritoneum and bowel: Bowel loops demonstrate normal wall thickness and caliber. A few colonic diver ticuli without evidence of diverticulosis. No free fluid or air. Nodes and vessels: No retroperitoneal or mesenteric adenopathy by size criteria. Aorta and inferior vena cava are normal in size. Scattered atherosclerotic calcifications are noted in the abdominal an d pelvic vasculature. Miscellaneous: No ventral hernias. PELVIS: Genitourinary: Bladder wall thickness is normal. Miscellaneous: No inguinal adenopathy. Small bilateral fat-containing inguinal hernias. Bones: Numerous sclerotic lesions scattered throughout the osseous skeleton patible with metastatic d isease. No vertebral body compression fractures. Spine degenerative disc disease and facet arthropath y are noted. IMPRESSION: 1. No acute traumatic injury. 2. Diffuse thoracic metastatic disease. Reviewed by: Alyssa Morris MD, PhD on 12/22/2020 11:58 PM PDT Approved by: Alyssa Morris MD, PhD on 12/22/2020 11:58 PM PDT Station ID: [id number]
[2020-12-23 00:19] LABS: MUDS CUTOFF CONCENTRATIONS CUTOFF CONC BELOW:
[2020-12-23 00:20] LABS: BILIRUBIN,URINE NEGATIVE (NEGATIVE); GLUCOSE, URINE (UA) NEGATIVE (NEGATIVE); KETONES,URINE (UA) TRACE mg/dL (NEGATIVE); LEUKOCYTE ESTERASE, URINE NEGATIVE (NEGATIVE); NITRITE,URINE NEGATIVE (NEGATIVE); OCCULT BLOOD,URINE TRACE-LYSE (NEGATIVE); PROTEIN,URINE NEGATIVE (NEGATIVE); UROBILINOGEN,URINE 0.2 (NORMAL) E.U./dL (NORMAL)
[2020-12-23 00:21] LABS: CLARITY,URINE CLEAR (CLEAR)
[2020-12-23 00:31] LABS: AMPHETAMINE SCREEN,URINE NEGATIVE (NEGATIVE); BARBITURATE SCREEN,UR NEGATIVE (NEGATIVE); BENZODIAZEPINES SCREEN, URINE NEGATIVE (NEGATIVE); COCAINE SCREEN URINE NEGATIVE (NEGATIVE); METHADONE SCREEN, URINE NEGATIVE (NEGATIVE); METHAMPHETAMINES SCREEN, URINE NEGATIVE (NEGATIVE); OPIATE SCREEN, URINE POSITIVE (NEGATIVE); OXYCODONE SCREEN, URINE NEGATIVE (NEGATIVE); PROPOXYPHENE SCREEN, URINE NEGATIVE (NEGATIVE); THC CANNABINOID SCREEN, URINE NEGATIVE (NEGATIVE); TRICYCLIC ANTIDEPRESSANT,URINE NEGATIVE (NEGATIVE)
--- NOTE | 2020-12-23 00:55 | ED Physician Documentation ---
History of Present Illness - Stated complaint Stated Complaint: FELL - Chief complaint Chief Complaint: Ext Problem - History obtained from History obtained from: Patient - Additonal information Additional information: 80-year-old man presents status post fall down 15 stairs after drinking alcohol this evening. Patient has left shoulder pain that was sudden in onset after the fall, constant, aching, worse with range of motion, associated with deformity. Also with abrasion to right forehead and right elbow. Patient is alert and oriented x3. Review of Systems Ten Systems: 10 systems reviewed and negative Eyes: denies: Loss of vision, Discharge Ears: denies: Drainage/discharge Nose: denies: Epistaxis Cardiac: denies: Chest pain / pressure Respiratory: denies: Dyspnea Musculoskeletal: reports: Extremity pain PD PAST MEDICAL HISTORY - Past Medical History Past Medical History: Yes Cardiovascular: Hypertension, High cholesterol Endocrine/Autoimmune: Type 2 diabetes HEENT: Chronic vision loss Psych: Post traumatic stress disorder Other Past Medical History: cancer of prostate/lung/'back' - Past Surgical History Past Surgical History: Yes HEENT: Tonsil/Adenoidectomy - Present Medications Home Medications: Ambulatory Orders Medication Instructions Recorded Confirmed Aspirin [Aspir 81] 81 mg PO DAILY 07/18/13 12/08/20 Atorvastatin [Lipitor] 50 mg PO DAILY 07/18/13 12/08/20 atenoloL [Atenolol] 25 mg PO DAILY 07/18/13 12/08/20 buPROPion [Wellbutrin Sr] 1 tab DAILY 07/18/13 12/08/20 Mupirocin 1 applic TP TID #15 g 12/25/19 12/08/20 cephALEXin [Keflex] 500 mg PO TID #21 capsule 12/25/19 12/08/20 Bicalutamide [Casodex] 50 mg PO DAILY 07/03/20 12/08/20 Apalutamide [Erleada] 60 mg PO DAILY 07/05/20 12/08/20 - Allergies Allergies/Adverse Reactions: Allergies Allergy/AdvReac Type Severity Reaction Status Date / Time influenza virus vaccine, AdvReac Severe Unknown Verified 12/22/20 22:32 specific [Influenza Virus Vacc,Specific] - Social History Does the pt smoke?: Yes Smoking Status: Current every day smoker Does the pt drink ETOH?: Yes ETOH Use: Beer Does the pt have substance abuse?: No - Immunizations Immunizations are current?: No - POLST Patient has POLST: No PD ED PE NORMAL - Vitals Vital signs reviewed: Yes - General General: Alert and oriented X 3, No acute distress, Well developed/nourished - HEENT HEENT: Atraumatic, PERRL, EOMI - Neck Neck: Supple, no meningeal sign - Cardiac Cardiac: RRR - Respiratory Respiratory: No respiratory distress, Clear bilaterally - Abdomen Abdomen: Non tender, Non distended - Derm Derm: Normal color, Warm and dry - Extremities Extremities: Other (Left shoulder with palpable deformity. Tender with range of motion. 2+ bilateral radial pulses. Normal capillary refill, sensation, strength.) Results - Vitals Vitals: Vital Signs - 24 hr 12/22/20 12/22/20 12/22/20 22:26 22:31 22:38 Temperature 36.6 C 36.6 C 36.8 C Heart Rate 72 72 68 Respiratory 18 18 16 Rate Blood Pressure 155/77 H 155/77 H 137/48 H O2 Saturation 96 96 97 12/22/20 12/22/20 12/22/20 23:01 23:30 23:31 Temperature 36.9 C Heart Rate 69 68 66 Respiratory 16 16 18 Rate Blood Pressure 136/53 H 130/60 126/74 O2 Saturation 94 96 96 12/23/20 12/23/20 12/23/20 00:00 00:32 01:10 Temperature 36.7 C Heart Rate 68 84 70 Respiratory 16 18 17 Rate Blood Pressure 127/49 L 137/55 H 134/74 H O2 Saturation 98 95 95 12/23/20 12/23/20 12/23/20 01:30 02:00 02:40 Temperature 36.5 C Heart Rate 81 74 87 Respiratory 17 18 20 Rate Blood Pressure 146/61 H 146/61 H 149/52 H O2 Saturation 95 94 95 Oxygen O2 Source Room air - Labs Labs: Laboratory Tests 12/22/20 12/22/20 12/22/20 22:22 22:22 22:22 WBC 14.1 H RBC 4.55 L Hgb 14.2 Hct 43.5 MCV 95.6 H MCH 31.2 H MCHC 32.6 RDW 12.1 Plt Count 211 MPV 11.1 Neut # (Auto) 11.3 H Lymph # (Auto) 1.3 L Lassen # (Auto) 1.3 H Eos # (Auto) 0.0 Baso # (Auto) 0.0 Absolute Nucleated RBC 0.00 Nucleated RBC % 0.0 PT 11.8 INR 1.1 APTT 29.6 Sodium 138 Potassium 4.0 Chloride 102 Carbon Dioxide 23 Anion Gap 13.0 BUN 20 Creatinine 0.8 Estimated GFR (MDRD) 93 Glucose 133 H Calcium 8.9 Total Bilirubin 0.8 AST 26 ALT 18 Alkaline Phosphatase 55 Total Protein 6.6 L Albumin 4.4 Globulin 2.2 Albumin/Globulin Ratio 2.0 Lipase 61 H Urine Color Urine Clarity Urine pH Ur Specific Norman Urine Protein Urine Glucose (UA) Urine Ketones Urine Occult Blood Urine Nitrite Urine Bilirubin Urine Urobilinogen Ur Leukocyte Esterase Ur Microscopic Review Urine Culture Comments Urine Opiates Screen Ur Oxycodone Screen Urine Methadone Screen Ur Propoxyphene Screen Ur Barbiturates Screen Ur Tricyclics Screen Ur Phencyclidine Scrn Ur Amphetamine Screen U Methamphetamines Scrn U Benzodiazepines Scrn Urine Cocaine Screen U Cannabinoids Screen Ethyl Alcohol 179.3 12/23/20 00:17 WBC RBC Hgb Hct MCV MCH MCHC RDW Plt Count MPV Neut # (Auto) Lymph # (Auto) Lassen # (Auto) Eos # (Auto) Baso # (Auto) Absolute Nucleated RBC Nucleated RBC % PT INR APTT Sodium Potassium Chloride Carbon Dioxide Anion Gap BUN Creatinine Estimated GFR (MDRD) Glucose Calcium Total Bilirubin AST ALT Alkaline Phosphatase Total Protein Albumin Globulin Albumin/Globulin Ratio Lipase Urine Color YELLOW Urine Clarity CLEAR Urine pH 5.0 Ur Specific Norman 1.010 Urine Protein NEGATIVE Urine Glucose (UA) NEGATIVE Urine Ketones TRACE Urine Occult Blood TRACE-LYSE Urine Nitrite NEGATIVE Urine Bilirubin NEGATIVE Urine Urobilinogen 0.2 (NORMAL) Ur Leukocyte Esterase NEGATIVE Ur Microscopic Review NOT INDICATED Urine Culture Comments NOT INDICATED Urine Opiates Screen POSITIVE H Ur Oxycodone Screen NEGATIVE Urine Methadone Screen NEGATIVE Ur Propoxyphene Screen NEGATIVE Ur Barbiturates Screen NEGATIVE Ur Tricyclics Screen NEGATIVE Ur Phencyclidine Scrn NEGATIVE Ur Amphetamine Screen NEGATIVE U Methamphetamines Scrn NEGATIVE U Benzodiazepines Scrn NEGATIVE Urine Cocaine Screen NEGATIVE U Cannabinoids Screen NEGATIVE Ethyl Alcohol PD MEDICAL DECISION MAKING - ED course ED course: d/w Dr. Constantino re: proximal humerus fracture. pulses, sensation, strength intact to distal LUE. ortho rec to place sling, follow up with ortho clinic. d/w patient. return precautions given. Departure - Departure Disposition: 01 Home, Self Care Clinical Impression: Proximal humerus fracture, Fall (on) (from) other stairs and steps, initial encounter Condition: Good Instructions: Humerus Fx Follow-Up: Mook Constantino MD [Provider Admit Priv/Credential] - Comments: You were seen in the emergency department for a fall.You broke your left humerus, the bone of the arm at the shoulder. You also have cancer in your bones, as we discussed. You will need to follow-up with orthopedics clinic in 1 week. Wear your sling until that time. Discharge Date/Time: 12/23/20 02:50
--- NOTE | 2020-12-23 01:22 | XRAY Report ---
PROCEDURE: Shoulder 2 View LT INDICATIONS: fall down 15 stairs TECHNIQUE: 2 views of the shoulder were acquired. COMPARISON: None. FINDINGS: Bones: Fracture of the proximal left humerus. Distal fracture fragment is displaced proximally and me dially Soft tissues: No suspicious soft tissue calcifications. IMPRESSION: Proximal left humerus fracture. Reviewed by: Alyssa Morris MD, PhD on 12/23/2020 1:21 AM PDT Approved by: Alyssa Morris MD, PhD on 12/23/2020 1:21 AM PDT Station ID: [id number]
[2020-12-23] MEDS ORDERED: IOVERSOL 320 100 ML VIAL IVP ONE (01:26)
[2020-12-23 02:45] VITALS: BP 149/52
== END 2020-12-23 02:50 | disposition home or self-care (01) ==
LOC: EDUNIT# → ED 22:17
DX: S42.202A Unspecified fracture of upper end of left humerus, initial encounter for closed fracture (principal); S50.311A Abrasion of right elbow, initial encounter; S00.81XA Abrasion of other part of head, initial encounter; W10.9XXA Fall (on) (from) unspecified stairs and steps, initial encounter; Z23 Encounter for immunization; C79.51 Secondary malignant neoplasm of bone; Z85.46 Personal history of malignant neoplasm of prostate; I10 Essential (primary) hypertension; E11.9 Type 2 diabetes mellitus without complications; F17.200 Nicotine dependence, unspecified, uncomplicated; Z79.82 Long term (current) use of aspirin
CPT/HCPCS: 36415; 70450; 71260; 72125; 73030; 74177; 80053; 80306; 81003; 83690; 85025; 85610; 85730; 90471; 90715; 96374; 99283; 99284; A9270; G0480; Q9967; 80320; 81001; 87086

== ENCOUNTER 2021-01-11 10:18 | Outpatient (CLI) | payer MEDICARE, OTHER ==
--- NOTE | 2021-01-11 16:43 | XRAY Report ---
PROCEDURE: Shoulder 3 View LT INDICATIONS: 2-PART DISPLACED FX OF SURGICAL NECK OF L HUMERUS TECHNIQUE: 3 views of the shoulder were acquired. COMPARISON: X-ray left shoulder, 12/23/2020. FINDINGS: Bones: There is a comminuted humeral head and neck fracture with impaction and displacement. The alig nment is unchanged. There are foci of indeterminate sclerosis in the distal clavicle. Visualized rib s appear intact. Soft tissues: No suspicious soft tissue calcifications. IMPRESSION: 1. Comminuted humeral head and neck fracture with impaction and displacement. Overall, the alignment is stable when compared to last exam. 2. Sclerotic foci in the distal clavicle. If there is personal history of cancer, metastatic disease is a diagnostic consideration. Otherwise, these could represent bone islands in the scapula. Recommen d clinical correlation. Reviewed by: Sarah Kang MD on 01/11/2021 4:41 PM PDT Approved by: Sarah Kang MD on 01/11/2021 4:41 PM PDT Station ID: [id number]
== END 2021-01-11 23:59 ==
LOC: DI.N 10:18
PROVIDERS: ATTEND Orthopaedic Surgery
DX: S42.222D 2-part displaced fracture of surgical neck of left humerus, subsequent encounter for fracture with routine healing (principal); R93.6 Abnormal findings on diagnostic imaging of limbs

== ENCOUNTER 2021-02-12 09:45 | Outpatient (CLI) | payer MEDICARE, OTHER ==
--- NOTE | 2021-02-12 14:50 | XRAY Report ---
PROCEDURE: Shoulder 3 View LT INDICATIONS: DISPLACED FX OF LEFT PROXIMAL HUMERUS TECHNIQUE: 4 views of the shoulder were acquired. COMPARISON: 01/11/2021, 10/23/2020. FINDINGS: Bones: There is some healing at proximal humeral shaft fracture site with callus formation. Overall l eft shoulder alignment is unchanged from 01/11/2021 study. Moderate acromioclavicular joint and glenoh umeral joint osteoarthritic changes are again seen. No new fracture or dislocation. No suspicious zina ny lesions. Visualized ribs appear intact. Soft tissues: No suspicious soft tissue calcifications. IMPRESSION: Interval further healing at proximal humeral fracture site with stable shoulder alignmen t. No new fracture or dislocation. Moderate shoulder joint osteoarthritis. Reviewed by: Drew Wiley MD on 02/12/2021 2:49 PM PST Approved by: Drew Wiley MD on 02/12/2021 2:49 PM PST Station ID: [id number]
== END 2021-02-12 23:59 | disposition home or self-care (01) ==
LOC: DI.N 09:45
PROVIDERS: ATTEND Orthopaedic Surgery
DX: S42.222D 2-part displaced fracture of surgical neck of left humerus, subsequent encounter for fracture with routine healing (principal)

== ENCOUNTER 2021-03-27 12:18 | Outpatient (CLI) | payer MEDICARE, OTHER ==
--- NOTE | 2021-03-27 16:31 | XRAY Report ---
PROCEDURE: Shoulder 3 View LT INDICATIONS: F/U LEFT SHOULDER FX TECHNIQUE: 3 views of the shoulder were acquired. COMPARISON: X-ray shoulder 02/12/2021 FINDINGS: Bones: There is stable alignment of previously identified proximal humeral shaft fracture. No new sup erimposed fracture or dislocation is identified. Minimal callus formation is present although not sig nificantly changed compared to prior exam. Left clavicular sclerosis is again noted. In addition, th ere is questionable appearance of faint sclerotic foci within the scapula and humeral head. Visualize d ribs appear intact. Soft tissues: No suspicious soft tissue calcifications. IMPRESSION: 1. Stable appearance of humeral head/neck fracture without definitive appearance of new superimposed healing sclerosis. Alignment is unchanged. 2. Unchanged appearance of left clavicular sclerosis, as addition to faint foci of sclerosis within t he femoral head and scapula. They are indeterminate on the basis of this examination. This could repr esent a large bone island or potentially metastatic disease. If clinical concern persists, bone scan is recommended. Reviewed by: Renae Roa MD on 03/27/2021 4:30 PM [facility] Approved by: Renae Roa MD on 03/27/2021 4:30 PM [facility] Station ID: [id number]
== END 2021-03-27 12:19 | disposition home or self-care (01) ==
LOC: DI.WOS 12:18
PROVIDERS: ATTEND Orthopaedic Surgery
DX: S42.222D 2-part displaced fracture of surgical neck of left humerus, subsequent encounter for fracture with routine healing (principal); M85.812 Other specified disorders of bone density and structure, left shoulder

== ENCOUNTER 2021-04-26 09:11 | Outpatient (CLI) | payer MEDICARE, OTHER ==
--- NOTE | 2021-04-26 16:56 | XRAY Report ---
PROCEDURE: Shoulder 3 View LT INDICATIONS: LEFT SHOULDER FX TECHNIQUE: Views of the left shoulderwere acquired. COMPARISON: None. FINDINGS: Bones: Stable alignment of a previously identified proximal left humeral shaft/neck fracture. No sig nificant callus formation has occurred since 03/27/2021. There are degenerative changes of the acromio clavicular joint. Sclerotic foci in the left scapula and left distal clavicle are unchanged. Soft tissues: No suspicious soft tissue calcifications. IMPRESSION: 1. Stable appearance of a left humeral head/neck fracture with no significant interval bridging callu s formation. 2. Stable sclerotic foci in the left distal clavicle and in the scapula. Reviewed by: Leno Hart on 04/26/2021 4:55 PM PST Approved by: Leno Hart on 04/26/2021 4:55 PM PST Station ID: [id number]
== END 2021-04-26 09:12 | disposition home or self-care (01) ==
LOC: DI.WOS 09:11
PROVIDERS: ATTEND Orthopaedic Surgery
DX: S42.222D 2-part displaced fracture of surgical neck of left humerus, subsequent encounter for fracture with routine healing (principal); M19.012 Primary osteoarthritis, left shoulder

== ENCOUNTER 2021-06-07 08:45 | Outpatient (CLI) | payer MEDICARE, OTHER ==
--- NOTE | 2021-06-07 10:33 | XRAY Report ---
PROCEDURE: Shoulder 2 View LT INDICATIONS: SHOULDER FRACTURE TECHNIQUE: Views of the location were acquired. COMPARISON: None. FINDINGS: Bones: Stable alignment of a previously identified proximal left humeral shaft/neck fracture. No si gnificant callus formation is seen with persistent nonunion. The acromioclavicular joint has degenera tive changes. Sclerotic foci in the left scapula and left distal clavicle are unchanged. Soft tissues: No suspicious soft tissue calcifications. IMPRESSION: 1. Stable appearance of a left humeral head/neck fracture with no significant interval bridging callu s formation consistent with nonunion. 2. Stable sclerotic foci in the left distal clavicle and scapula. Reviewed by: Leno Hart on 06/07/2021 10:32 AM PDT Approved by: Leno Hart on 06/07/2021 10:32 AM PDT Station ID: [id number]
== END 2021-06-07 23:59 | disposition home or self-care (01) ==
LOC: DI.WOS 08:45
PROVIDERS: ATTEND Orthopaedic Surgery
DX: S42.222A 2-part displaced fracture of surgical neck of left humerus, initial encounter for closed fracture (principal)

== ENCOUNTER 2021-11-26 05:39 | Outpatient (CLI) | payer MEDICARE, OTHER | END 2021-11-26 05:40 | disposition critical access hospital (66) | LOC: EMS 05:39 | DX: R07.81 Pleurodynia (principal); M25.512 Pain in left shoulder | CPT/HCPCS: A0425; A0429 ==

== ENCOUNTER 2021-11-26 05:58 | Emergency (ER) | payer MEDICARE, OTHER ==
--- NOTE | 2021-11-26 06:12 | ED Physician Documentation ---
PD HPI Fall - Stated complaint Stated Complaint: LEFT SIDE CHEST INJURY GETTING WORSE - Chief complaint Chief Complaint: Trauma Ext - History obtained from History obtained from: Patient, EMS - History of Present Illness Mechanism of injury: Slipped Fall distance: Standing position Where injury occurred: Home Timing - onset: How many days ago (3) Injury(ies) location: Chest (left lateral ribs), Left Uppper Extremity (shoulder hurting more than baseline). No: Head, Neck Quality of pain: Aching, Sharp Associated symptoms: No: LOC, Weakness, Paresthesias Worsens with: Movement, Palpation Contributing factors: No: Anticoagulated, Intoxicated Similar symptoms before: Diagnosis (prior rib fractures. Has had prior left humeral shaft pathologic fracture.) Recently seen: Not recently seen Review of Systems Constitutional: denies: Fever, Chills Nose: denies: Rhinorrhea / runny nose, Congestion Throat: denies: Sore throat Cardiac: denies: Pedal edema Respiratory: reports: Dyspnea. denies: Cough, Wheezing GI: denies: Abdominal Pain, Bloody / black stool Skin: reports: Abrasion (s) (left elbow). denies: Laceration (s) Musculoskeletal: denies: Neck pain, Back pain Neurologic: denies: Focal weakness, Numbness PD PAST MEDICAL HISTORY - Past Medical History Cardiovascular: Hypertension, High cholesterol Endocrine/Autoimmune: Type 2 diabetes HEENT: Chronic vision loss Psych: Post traumatic stress disorder - Past Surgical History Past Surgical History: Yes HEENT: Tonsil/Adenoidectomy - Present Medications Home Medications: Ambulatory Orders Medication Instructions Recorded Confirmed Aspirin [Aspir 81] 81 mg PO DAILY 07/18/13 10/19/21 Atorvastatin [Lipitor] 50 mg PO DAILY 07/18/13 10/19/21 atenoloL [Atenolol] 25 mg PO DAILY 07/18/13 10/19/21 buPROPion [Wellbutrin Sr] 1 tab DAILY 07/18/13 10/19/21 Mupirocin 1 applic TP TID #15 g 12/25/19 10/19/21 cephALEXin [Keflex] 500 mg PO TID #21 capsule 12/25/19 10/19/21 Bicalutamide [Casodex] 50 mg PO DAILY 07/03/20 10/19/21 Apalutamide [Erleada] 60 mg PO DAILY 07/05/20 10/19/21 - Allergies Allergies/Adverse Reactions: Allergies Allergy/AdvReac Type Severity Reaction Status Date / Time influenza virus vaccine, AdvReac Severe Unknown Verified 11/26/21 06:13 specific [Influenza Virus Vacc,Specific] - Social History Does the pt smoke?: Yes Smoking Status: Current every day smoker Does the pt drink ETOH?: Yes Does the pt have substance abuse?: No - Immunizations Immunizations are current?: No - POLST Patient has POLST: No PD ED PE NORMAL - Vitals Vital signs reviewed: Yes - General General: Alert and oriented X 3, Well developed/nourished, Other (moderately uncomfrotable with movement and deep breathing. ) - HEENT HEENT: Atraumatic - Neck Neck: Supple, no meningeal sign, No bony TTP - Cardiac Cardiac: RRR, No murmur - Respiratory Respiratory: Clear bilaterally, Other (Tenderness in the anterolateral chest wall approximately ribs 7 through 10 nonfocal he. No crepitance or subcutaneous emphysema.) - Abdomen Abdomen: Soft, Non tender - Back Back: No CVA TTP, No spinal TTP - Derm Derm: Normal color, Warm and dry - Extremities Extremities: Other (The left elbow shows a partial-thickness skin pee ls/laceration of the left elbow which is bandaged. Full range of motion of the elbow without tenderness. Left shoulder has guarded range of motion and he does not want to lift it above 60 degrees.) - Neuro Neuro: Alert and oriented X 3, No motor deficit, No sensory deficit, Normal speech Results - Vitals Vitals: Vital Signs - 24 hr 11/26/21 11/26/21 11/26/21 06:00 06:11 07:02 Temperature 36.2 C L 36.8 C Heart Rate 57 L 55 L 54 L Respiratory 19 18 17 Rate Blood Pressure 155/56 H 155/56 H 135/50 H O2 Saturation 97 97 97 11/26/21 07:27 Temperature Heart Rate 54 L Respiratory 14 Rate Blood Pressure 151/63 H O2 Saturation 98 Oxygen O2 Source Room air - Labs Labs: Laboratory Tests 11/26/21 11/26/21 06:44 06:44 WBC 8.8 RBC 4.54 L Hgb 14.4 Hct 43.8 MCV 96.5 H MCH 31.7 H MCHC 32.9 RDW 12.2 Plt Count 162 MPV 11.1 Neut # (Auto) 6.2 Lymph # (Auto) 1.3 L Liberty # (Auto) 1.1 H Eos # (Auto) 0.1 Baso # (Auto) 0.0 Absolute Nucleated RBC 0.00 Nucleated RBC % 0.0 Sodium 137 Potassium 3.8 Chloride 100 L Carbon Dioxide 29 Anion Gap 8.0 BUN 16 Creatinine 0.7 Estimated GFR (MDRD) 108 Glucose 153 H Calcium 9.0 Total Bilirubin 0.7 AST 13 ALT 11 Alkaline Phosphatase 60 Total Protein 6.1 L Albumin 3.7 Globulin 2.4 Albumin/Globulin Ratio 1.5 Lipase 22 - Rads (name of study) chest xray Radiology: Prelim report reviewed (Prior pathologic humeral shaft fracture noted. Possible seventh rib. No pneumothorax.), See rad report PD MEDICAL DECISION MAKING - ED course Complexity details: considered differential (Mainly trunk injury in the chest. Will get CT scan for better evaluation. Head CT at the same time.), d/w patient Departure - Departure Clinical Impression: Fall from slip, trip, or stumble, Elbow laceration, Shoulder pain, Chest wall injury Condition: Stable Record reviewed to determine appropriate education?: Yes
[2021-11-26] MEDS ORDERED: HYDROmorphone 0.5 MG/0.5 ML SYRINGE IVP STA (06:31)
[2021-11-26] MEDS ORDERED: KETOROLAC 15 MG/ML VIAL IVP STA (06:31)
[2021-11-26] MEDS ORDERED: SODIUM CHLORIDE 0.9% 1,000 ML IV STA (06:32)
[2021-11-26 06:59] LABS: BASOPHILS % (AUTO) 0.2 %; EOSINOPHILS # (AUTO) 0.1 10^3/uL (0.0-0.7); HCT - HEMATOCRIT 43.8 % (42.0-52.0); HGB - HEMOGLOBIN 14.4 g/dL (14.0-18.0); LYMPHOCYTES # (AUTO) 1.3 10^3/uL (1.5-3.5); LYMPHOCYTES % (AUTO) 15.1 %; MEAN CORPUSCULAR HEMOGLOBIN 31.7 pg (27.0-31.0); MEAN CORPUSCULAR HGB CONC 32.9 g/dL (32.0-36.0); MEAN CORPUSCULAR VOLUME 96.5 fL (80.0-94.0); MEAN PLATELET VOLUME 11.1 fL (7.4-11.4); MONOCYTES # (AUTO) 1.1 10^3/uL (0.0-1.0); MONOCYTES % (AUTO) 12.8 %; NEUTROPHILS # (AUTO) 6.2 10^3/uL (1.5-6.6); NEUTROPHILS % (AUTO) 70.4 %; PLT - PLATELET COUNT 162 10^3/uL (130-450); RED BLOOD COUNT 4.54 10^6/uL (4.70-6.10); RED CELL DISTRIBUTION WIDTH 12.2 % (12.0-15.0); WHITE BLOOD COUNT 8.8 x10^3/uL (4.8-10.8)
[2021-11-26 07:00] LABS: ALBUMIN 3.7 g/dL (3.2-5.5); ALBUMIN/GLOBULIN RATIO 1.5 (1.0-2.2); BILIRUBIN,TOTAL 0.7 mg/dL (0.2-1.0); CREATININE 0.7 mg/dL (0.6-1.2); POTASSIUM 3.8 mmol/L (3.5-5.0); TOTAL PROTEIN 6.1 g/dL (6.7-8.2)
--- NOTE | 2021-11-26 08:38 | CT Report ---
PROCEDURE: HEAD WO INDICATIONS: fall, struck head TECHNIQUE: Noncontrast 4.5 mm thick angled axial sections acquired from the foramen magnum to the vertex. For r adiation dose reduction, the following was used: automated exposure control, adjustment of mA and/or kV according to patient size. COMPARISON: Head CT without, 12/22/2020. FINDINGS: Image quality: Excellent. CSF spaces: Basal cisterns are patent. No extra-axial fluid collections. Ventricles are normal in size and shape. Brain: No midline shift. No intracranial masses or hemorrhage. Rodriguez-white matter interface is norm al. Skull and face: Calvarium and visualized facial bones are intact, without suspicious lesions. Mild frontal soft tissue contusion. Sinuses: Visualized sinuses and mastoids are clear. IMPRESSION: 1. No acute intracranial abnormalities. 2. Cerebral volume loss and periventricular white matter chronic small vessel changes. No significant discrepancy with the preliminary interpretation. . Reviewed by: Sarah Kang MD on 11/26/2021 8:37 AM PDT Approved by: Sarah Kang MD on 11/26/2021 8:37 AM PDT Station ID: [id number]
--- NOTE | 2021-11-26 08:40 | XRAY Report ---
PROCEDURE: Chest 1 View X-Ray INDICATIONS: chest pain; fall TECHNIQUE: One view of the chest was acquired. COMPARISON: Chest CT with, 06/22/2021. Bone scan, whole body, 06/13/2021. X-ray left shoulder, 022 FINDINGS: Surgical changes and devices: None. Lungs and pleura: Left basilar opacity may be consolidation or atelectasis. No pleural effusions or pneumothorax. Mediastinum: Mediastinal contours appear normal. Heart size is normal. Bones and chest wall: There is a pathological fracture in the left humeral neck. Patchy osseous scler osis compatible with osseous metastasis. No suspicious bony lesions. Overlying soft tissues appear unremarkable. IMPRESSION: 1. Left basilar consolidation or atelectasis. 2. 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 No significant discrepancy with the preliminary interpretation. Reviewed by: Sarah Kang MD on 11/26/2021 8:39 AM PDT Approved by: Sarah Kang MD on 11/26/2021 8:39 AM PDT Station ID: [id number]
--- NOTE | 2021-11-26 09:39 | CT Report ---
PROCEDURE: CHEST WO INDICATIONS: fall, struck left anterolateral chest TECHNIQUE: Noncontrast 1mm axial images were acquired from the pulmonary apices to the posterior costophrenic an gles. Axial 5 mm soft tissue kernel reconstructions were performed as well as 8 mm axial MIP and cor onal and sagittal 5 mm reformations. For radiation dose reduction, the following was used: automate d exposure control, adjustment of mA and/or kV according to patient size. COMPARISON: CT chest, 06/22/2021, 12/22/2020. FINDINGS: Image quality: Excellent. Lungs and pleura: Left basilar consolidation and/or atelectasis. Small left pleural effusion. No pne umothorax. There is a 3 mm nodule in the right upper lobe (series 4 image 120), unchanged. Central a nd peripheral airways are patent and normal in caliber. There is a mucous retention material in the gravity dependent trachea. Mediastinum: Heart size is normal. There is severe coronary artery calcification. No pericardial ef fusion. No mediastinal adenopathy by size criteria. Calcification of aorta consistent with atheroscl erosis. Thoracic aorta and central pulmonary arteries are normal in size. Esophagus is normal in ca liber. Small hiatal hernia. Bones and chest wall: Acute non-displaced left sixth and seventh rib fractures are present. Sclerotic bone lesions consistent with osseous metastases. There is a chronic pathological fracture involving the left humeral neck. No vertebral body compression fractures. No axillary or supraclavicular xochilt opathy by size criteria. The thyroid is normal in size and there are no incidental findings. Abdomen: Multiple foci of calcifications are seen in spleen, compatible with remote granulomatous inf ection. IMPRESSION: 1. Acute nondisplaced left sixth and seventh rib fractures are present. 2. Left basilar consolidation and/or atelectasis. Differential diagnoses are prominent contusion vers us pneumonia. 3. Severe coronary artery atherosclerosis. 4. Stable 3 mm nodule in the right upper lobe. 5. Extensive osseous metastases. 6. Chronic pathological fracture of the left humeral neck. No significant discrepancy with the preliminary interpretation. Reviewed by: Sarah Kang MD on 11/26/2021 9:38 AM PDT Approved by: Sarah Kang MD on 11/26/2021 9:38 AM PDT Station ID: [id number]
[2021-11-26] MEDS ORDERED: LIDOCAINE PATCH 5% TOP STA (10:49)
[2021-11-26] MEDS ORDERED: IBUPROFEN 600 MG TABLET PO STA (10:49)
--- NOTE | 2021-11-26 10:51 | ED Physician Documentation ---
ED Addendum - Addendum Addendum: 11/26/21 10:50 Patient received a signout from off going physician, please see their d ocumentation for further detail. Imaging reviewed. Patient has left-sided sixth and seventh nondisplaced rib fractures. Was given medication for pain control here in the emergency department. This medication did cause a brief episode of hypoxia and patient was placed on 1 L nasal cannula. Monitored in the emergency department for several hours, reevaluated and found to be resting comfortably and in no acute distress. No further oxygen demand on reevaluation. Discussed all findings with patient and patient's daughter who is retired nurse. Discussed the nature of rib fractures, the persistence of the associated pain as well as the risk for developing pneumonia. Patient was given incentive spirometer and instructed in its use for pulmonary health during healing of his rib fractures. Additionally was provided with Lidoderm patch and dose of Motrin in conjunction with these earlier ordered narcotic pain medication. Will discharge with instructions for regular alternating Motrin, Tylenol, Lidoderm patches as well as a prescription for Roxicodone with instructions to take half doses as needed for pain control. Encourage careful follow-up with primary care and/or return to the emergency department as needed.
[2021-11-26 11:05] VITALS: BP 124/64
== END 2021-11-26 11:33 | disposition home or self-care (01) ==
LOC: ED 05:58
DX: S29.9XXA Unspecified injury of thorax, initial encounter (principal); S49.92XA Unspecified injury of left shoulder and upper arm, initial encounter; S51.012A Laceration without foreign body of left elbow, initial encounter; W01.0XXA Fall on same level from slipping, tripping and stumbling without subsequent striking against object, initial encounter; Y92.009 Unspecified place in unspecified non-institutional (private) residence as the place of occurrence of the external cause; I10 Essential (primary) hypertension; F17.200 Nicotine dependence, unspecified, uncomplicated; E11.9 Type 2 diabetes mellitus without complications
CPT/HCPCS: 36415; 70450; 71045; 71250; 80053; 83690; 85025; 93005; 96374; 96375; 99282; 99285; A9270; J1170

== ENCOUNTER 2022-05-03 19:28 | Outpatient (CLI) | payer MEDICARE, OTHER | END 2022-05-03 19:29 | disposition home or self-care (01) | LOC: SC 19:28 | PROVIDERS: ATTEND Nurse Practitioner Family | DX: G47.33 Obstructive sleep apnea (adult) (pediatric) (principal); G47.61 Periodic limb movement disorder | CPT/HCPCS: 95810 ==

== ENCOUNTER 2022-05-22 16:52 | Outpatient (CLI) | payer MEDICARE, OTHER ==
--- NOTE | 2022-05-22 12:16 | SLEEP CARE CONSULTATION ---
Information from patient questionnaire entered by Diana Darnell. I have reviewed and concur with the information entered by Diana Darnell. This document represents the service I personally performed and the decisions made by , Jeanna Nation ARNP. History of Present Illness Service Date and Time: 05/22/2022 1140 Initial Phelps Sleepiness Scale score: 9 (03/27/22) Current Phelps Sleepiness Scale score: 11 (05/22/22) Additional HPI information: DWIGHT MONTEJO returns via telehealth visit for follow up and results of the recently performed polysomnography. I explained the pathophysiology behind obstructive sleep apnea. We then spent quite a bit of time discussing different treatment options. For mild obstructive sleep apnea, surgery and oral appliance are alternatives to nasal CPAP therapy but in moderate or severe cases, nasal CPAP is the most effective and reliable treatment. Because apnea is primarily in supine position, then positional management therapy could be effective. Methods discussed such as positioning with pillows to prevent supine sleep. I reviewed the impact of weight changes on sleep apnea and strongly recommended losing weight. After some discussion, the patient opted to go with the nasal CPAP therapy. Nasal autoCPAP set at 4-15 cmH20 will be ordered with rationale explained. A manual titration study will be ordered if unable to find optimal pressure with office adjustments. I explained how CPAP machine works and what to expect when using the machine. Using CPAP every night in order to get used to it was emphasized. Patient advised to put CPAP mask on before getting into bed so as not to fall asleep without CPAP. To assist acclimation to CPAP use, it could also be used for a short time during day while reading or watching TV. The patient was instructed to call the CPAP supplier to discuss any mechanical problem that may occur. If the mask given is uncomfortable or is difficult to keep on through the night even with adjustment, contact the CPAP supplier as many will replace with another mask style if notified before 30 days. If snoring or perceives is not getting enough air or too much air from the machine, notify this office. Patient counseled not drink alcohol less than 4 hours before bedtime as it can increase snoring and apnea. Patient was cautioned about risks of drowsy driving until sleepiness symptoms resolve. Patient denies drowsy driving. Sleep Study - Results Type of Sleep Study: Polysomnography (COMPLETED 05/03/22) Prior sleep studies: Yes Year and Where: CPAP LONG AGO Polysomnography/Home Sleep Study results: IMPRESSION: The quality of the study is good. The patient had normal sleep efficiency. The sleep architecture was abnormal for sleep fragmentation and reduced amount of time spent in slow wave sleep (N3). Respiratory monitoring showed severe obstructive sleep apnea-hypopnea (AHI = 31.0) associated with frequent arousals, oxyhemoglobin desaturation and moderate hypoxia (lalito oxygen saturation of 80%) . The respiratory events occurred almost exclusively during supine sleep (supine AHI = 43.5; non-supine = 2.34). Snore was loud in intensity. There was mild periodic leg movement of sleep not contributing to the sleep fragmentation. Cardiac rhythm was normal sinus rhythm without significant arrhythmia. No abnormal behavior (parasomnia) observed during the night. Allergies and Home Medications Known drug allergies: Yes (influenza virus vaccine, specific) Drug allergies reviewed: Yes Home medication list reviewed: Yes (no changes) Allergy and home medication list: Allergies influenza virus vaccine, specific [Influenza Virus Vacc,Specific] Adverse Reaction (Severe, Verified 05/21/22 08:49) Unknown Review of Systems Review of systems same as previous: Yes (no changes) Physical Exam Vital signs obtained and entered by: DIANA Rutherford MA Height: 5 ft 11 in (PER PT) Weight: 155 lb (PER PT) Body Mass Index: 21.6 BMI Classification: Normal Impression and Plan 1. Obstructive Sleep Apnea-Hypopnea Syndrome, severe, with lowest oxygen satura tion of 80%. Obviously this is the cause of the patients symptoms of unrefreshed sleep, and excessive daytime sleepiness. Positive pressure therapy could benefit hypertension, diabetes, anxiety, depression and mood disorder. As mentioned above, the patient will be started on nasal autoCPAP therapy with pressure set at 4-15 cmH2O. A manual titration study will be completed if unable to find optimal treatment pressure with office adjustments. Compliance guidelines also reviewed. A copy of compliance guidelines will be given for reference at check out. Because the apnea is more severe supine, I instructed to avoid sleeping supine using pillow positioning until able to start CPAP use. * Nasal auto CPAP therapy, pressure at 4-15 cm H2O. * Attempt to lose weight. * Avoid alcohol consumption near bedtime. * Avoid supine sleep until using CPAP. * The patient is again cautioned about driving until sleepiness completely resolves. * Return one month after CPAP obtained. I will assess response to therapy and compliance at that time. Counseling Topics: Sleeping position, Weight loss health impact Visit Type: Telehealth Phone Video Type: Doximity Patient Location: Home Other Participants: Spouse/Significant Other Location of Provider: Office Patient agrees and consents to this telehealth visit type: Yes Patient agrees to have their insurance billed: Yes Time Spent with Patient (minutes): 12 Provider Statement: I spent 100% of the Telehealth Phone Call with the patient with greater than 50% spent counseling the patient and coordination of care.
== END 2022-05-22 16:53 | disposition home or self-care (01) ==
LOC: SC 16:52
PROVIDERS: ATTEND Nurse Practitioner Family
DX: G47.33 Obstructive sleep apnea (adult) (pediatric) (principal)

== ENCOUNTER 2022-06-23 10:34 | Emergency (ER) | payer MEDICARE, OTHER ==
--- OUTSIDE RECORDS SUMMARY | 2022-06-23 11:43 | EXTERNAL MEDICAL SUMMARY RPT | Continuity of Care Document ---
:1940 Author Organization [facility] Address [address] [place] [address] Phone Allergies No information. Encounters No information. Functional Status No information. Immunizations No information. Medications No information. Problems date description facility 2022-06-18 10:31 Malignant neoplasm of [facility] Procedures No information. Results/Labs test date author facility value unit interpret ation Result panel 1 (unknown) (no (unknown) (unknown) (no value) (units (unk nown) date) unknown) (unknown) (no (unknown) (unknown) 06/18/22 (units (unkno wn) date) unknown) (unknown) (no (unknown) (unknown) [id number] (units (unkno wn) date) unknown) (unknown) (no (unknown) (unknown) 1. Focal uptake (units (unknown) date) in the left unknown) humeral neck correlating with a fracture. Cannot (unknown) (no (unknown) (unknown) 1. Normal contour (units (unknown) date) of the prostate. unknown) No retroperitoneal or pelvic adenopathy. (unknown) (no (unknown) (unknown) [address] [place] [address] (units (unknown) date) unknown) (unknown) (no (unknown) (unknown) 2. 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 Foci of (units (unk nown) date) increased uptake unknown) in thoracic and lumbar spine, sacrum, and bony (unknown) (no (unknown) (unknown) 3. 1.4 centimeter (units (unknown) date) left adrenal unknown) nodule, indeterminate in the setting malignancy. (unknown) (no (unknown) (unknown) 3. Increased (units (u nknown) date) activity in the unknown) proximal tibia, indeterminate. Recommend (unknown) (no (unknown) (unknown) ABDOMEN: (units (unkno wn) date) unknown) (unknown) (no (unknown) (unknown) Abdominal Nodes: (units (unknown) date) No retroperitoneal unknown) or mesenteric adenopathy by size criteria. (unknown) (no (unknown) (unknown) Accession Number: (units (unknown) date) [id number] unknown) (unknown) (no (unknown) (unknown) Accession Number: (units (unknown) date) [id number] unknown) (unknown) (no (unknown) (unknown) Adrenal Glands: (units (unknown) date) 1.4 centimeter unknown) left adrenal nodule. (unknown) (no (unknown) (unknown) After the (units (unkn own) date) administration of unknown) oral and intravenous contrast, axial sections (unknown) (no (unknown) (unknown) Age/Sex: 81 / M (units (unknown) date) Date of Service: unknown) (unknown) (no (unknown) (unknown) [place], [place] (units ( unknown) date) [id number] unknown) (unknown) (no (unknown) (unknown) Approved by: (units (u nknown) date) Sarah Kang M.D. on unknown) 06/18/2022 at 16:21 (unknown) (no (unknown) (unknown) Approved by: Tony (units (unknown) date) Harvinder Weldon on unknown) 06/18/2022 at 13:46 (unknown) (no (unknown) (unknown) Axillae: No (units (un known) date) enlarged lymph unknown) nodes. (unknown) (no (unknown) (unknown) Biliary ducts: (units (unknown) date) Unremarkable. unknown) (unknown) (no (unknown) (unknown) Bladder: (units (unkno wn) date) Unremarkable. unknown) (unknown) (no (unknown) (unknown) Bones: Extensive (units (unknown) date) sclerotic unknown) metastatic disease. No measurable soft tissue (unknown) (no (unknown) (unknown) CHEST: (units (unkno wn) date) unknown) (unknown) (no (unknown) (unknown) COMPARISON: (units (un known) date) Formerly [facility], unknown) CT, CT CHEST ABD PEL W CON, 06/18/2022, 12:13. (unknown) (no (unknown) (unknown) COMPARISON: None. (units (unknown) date) unknown) (unknown) (no (unknown) (unknown) CT Scan Report (units (unknown) date) unknown) (unknown) (no (unknown) (unknown) Chest Wall: (units (un known) date) Gynecomastia. unknown) (unknown) (no (unknown) (unknown) Consider (units (unkno wn) date) dedicated CT or unknown) MRI (adrenal mass protocol). (unknown) (no (unknown) (unknown) : 1940 (units (unknown) date) Acct:[id number] unknown) (unknown) (no (unknown) (unknown) Delayed (units (unkno wn) date) whole-body unknown) scintigrams were obtained approximately 3-4 hours after (unknown) (no (unknown) (unknown) Dictated by: (units (u nknown) date) Sarah Kang M.D. on unknown) 06/18/2022 at 16:12 (unknown) (no (unknown) (unknown) Dictated by: Tony (units (unknown) date) Harvinder Weldon on unknown) 06/18/2022 at 13:41 (unknown) (no (unknown) (unknown) Esophagus: No (units ( unknown) date) wall thickening. unknown) No hiatal hernia. (unknown) (no (unknown) (unknown) FINDINGS: There (units (unknown) date) is a focal uptake unknown) in the left humeral neck, suspicious for (unknown) (no (unknown) (unknown) FINDINGS: (units (unkn own) date) unknown) (unknown) (no (unknown) (unknown) Gallbladder: (units (u nknown) date) Unremarkable. unknown) (unknown) (no (unknown) (unknown) Heart: Heart size (units (unknown) date) is normal. No unknown) pericardial effusion. Three-vessel coronary (unknown) (no (unknown) (unknown) IMPRESSION: (units (un known) date) unknown) (unknown) (no (unknown) (unknown) INDICATIONS: (units (u nknown) date) Prostate Cancer unknown) (unknown) (no (unknown) (unknown) Image quality: (units (unknown) date) Excellent. unknown) (unknown) (no (unknown) (unknown) [facility] (units (unknown) date) unknown) (unknown) (no (unknown) (unknown) Kidneys and (units (un known) date) Ureters: unknown) Unremarkable. (unknown) (no (unknown) (unknown) Liver: (units (unkno wn) date) Unremarkable. unknown) (unknown) (no (unknown) (unknown) Loc: [facility] (units (unkn own) date) unknown) (unknown) (no (unknown) (unknown) Lower Neck: No (units (unknown) date) enlarged lymph unknown) nodes. (unknown) (no (unknown) (unknown) Lungs and (units (unkn own) date) Airways: Moderate unknown) centrilobular emphysema. 4.5 millimeter (unknown) (no (unknown) (unknown) Mediastinum and (units (unknown) date) Fadia: No enlarged unknown) lymph nodes. (unknown) (no (unknown) (unknown) Miscellaneous: No (units (unknown) date) inguinal hernias unknown) are seen. (unknown) (no (unknown) (unknown) Nuclear Medicine (units (unknown) date) Report unknown) (unknown) (no (unknown) (unknown) Ordering (units (unkno wn) date) Provider: unknown) Khadijah De La Torre MD (unknown) (no (unknown) (unknown) PELVIS: (units (unkno wn) date) unknown) (unknown) (no (unknown) (unknown) PROCEDURE: CT (units ( unknown) date) CHEST ABD PEL W unknown) CON (unknown) (no (unknown) (unknown) PROCEDURE: NM (units ( unknown) date) BONE SCAN WHOLE unknown) BODY (unknown) (no (unknown) (unknown) Pancreas: (units (unkn own) date) Unremarkable. unknown) (unknown) (no (unknown) (unknown) Patient: (units (unkno wn) date) Dwight Montejo T unknown) MR#: [id number] (unknown) (no (unknown) (unknown) Pelvic Nodes: No (units (unknown) date) enlarged lymph unknown) nodes. (unknown) (no (unknown) (unknown) Pelvic Organs: (units (unknown) date) Prostate is mildly unknown) enlarged. Normal contour. (unknown) (no (unknown) (unknown) Peritoneum: No (units (unknown) date) abnormal unknown) intraperitoneal fluid. No free air. (unknown) (no (unknown) (unknown) Pleura: No (units (unk nown) date) pneumothorax or unknown) pleural effusions. (unknown) (no (unknown) (unknown) Procedure: CT (units ( unknown) date) chest abd pel w unknown) con (unknown) (no (unknown) (unknown) Procedure: NM (units ( unknown) date) bone scan whole unknown) body (unknown) (no (unknown) (unknown) RADIOPHARMACEUTIC (units (unknown) date) AL: 20.7 mCi unknown) Tc-99m MDP IV. (unknown) (no (unknown) (unknown) Signed (units (unkno wn) date) unknown) (unknown) (no (unknown) (unknown) Spleen: Splenic (units (unknown) date) granuloma. unknown) (unknown) (no (unknown) (unknown) Stomach and (units (un known) date) Bowel: Stomach, unknown) small bowel loops, and colon are unremarkable. (unknown) (no (unknown) (unknown) TECHNIQUE: (units (unk nown) date) unknown) (unknown) (no (unknown) (unknown) There is a (units (unk nown) date) fracture in the unknown) left humeral neck. There are foci of increased (unknown) (no (unknown) (unknown) Thoracic Vessels: (units (unknown) date) The aorta and unknown) pulmonary arteries demonstrate normal size. (unknown) (no (unknown) (unknown) Thyroid: Within (units (unknown) date) normal limits. unknown) (unknown) (no (unknown) (unknown) Ventral Wall: No (units (unknown) date) hernia. unknown) (unknown) (no (unknown) (unknown) Vessels: Aorta (units (unknown) date) and inferior vena unknown) cava are normal in size. Extensive (unknown) (no (unknown) (unknown) acquired from (units ( unknown) date) unknown) (unknown) (no (unknown) (unknown) atherosclerotic (units (unknown) date) unknown) (unknown) (no (unknown) (unknown) bone lesions seen (units (unknown) date) on CT, consistent unknown) with metastasis to spine could be obscured (unknown) (no (unknown) (unknown) by (units (unkno wn) date) unknown) (unknown) (no (unknown) (unknown) component. No (units ( unknown) date) unknown) (unknown) (no (unknown) (unknown) consistent with (units (unknown) date) degenerative/arthr unknown) itic changes. Increased activity is noted in (unknown) (no (unknown) (unknown) control, (units (unkno wn) date) adjustment of mA unknown) and/or kV according to patient size. (unknown) (no (unknown) (unknown) correlating with (units (unknown) date) sclerotic bone unknown) lesions seen on the comparison CT, consistent (unknown) (no (unknown) (unknown) correlation. (units (u nknown) date) unknown) (unknown) (no (unknown) (unknown) degenerative (units (u nknown) date) changes. Foci of unknown) increased activity in maxilla and mandible are (unknown) (no (unknown) (unknown) disease, (units (unkno wn) date) unknown) (unknown) (no (unknown) (unknown) disease. (units (unkno wn) date) unknown) (unknown) (no (unknown) (unknown) exposure (units (unkno wn) date) unknown) (unknown) (no (unknown) (unknown) feet. (units (unkno wn) date) unknown) (unknown) (no (unknown) (unknown) impingement. (units (u nknown) date) unknown) (unknown) (no (unknown) (unknown) indicated, MRI (units (unknown) date) unknown) (unknown) (no (unknown) (unknown) injection of (units (u nknown) date) radiotracer. unknown) Anterior and posterior views were acquired from (unknown) (no (unknown) (unknown) intrapulmonary (units (unknown) date) unknown) (unknown) (no (unknown) (unknown) intravenous (units (un known) date) unknown) (unknown) (no (unknown) (unknown) lymph node. No (units (unknown) date) suspicious unknown) pulmonary nodules. (unknown) (no (unknown) (unknown) metastases. (units (un known) date) unknown) (unknown) (no (unknown) (unknown) metastasis. (units (un known) date) unknown) (unknown) (no (unknown) (unknown) most likely (units (un known) date) unknown) (unknown) (no (unknown) (unknown) nodule with (units (un known) date) pleural tail in unknown) the anterior right upper lobe, presumably an (unknown) (no (unknown) (unknown) pathological (units (u nknown) date) fracture. unknown) Recommend clinical correlation. If clinically (unknown) (no (unknown) (unknown) pelvis, (units (unkno wn) date) unknown) (unknown) (no (unknown) (unknown) performed. For (units (unknown) date) radiation dose unknown) reduction, the following was used: automated (unknown) (no (unknown) (unknown) proximal left (units ( unknown) date) tibia. unknown) (unknown) (no (unknown) (unknown) radiographic (units (u nknown) date) unknown) (unknown) (no (unknown) (unknown) rule out (units (unkno wn) date) unknown) (unknown) (no (unknown) (unknown) sclerotic (units (unkn own) date) unknown) (unknown) (no (unknown) (unknown) secondary to (units (u nknown) date) dental disease. unknown) There are foci of increased periarticular activity (unknown) (no (unknown) (unknown) spinal canal (units (u nknown) date) impingement. unknown) (unknown) (no (unknown) (unknown) the (units (unkno wn) date) supraclavicular unknown) neck to the pubic symphysis. Coronal and sagittal reformats (unknown) (no (unknown) (unknown) the (units (unkno wn) date) unknown) (unknown) (no (unknown) (unknown) thoracic and (units (u nknown) date) lumbar spine, unknown) sacrum, bony pelvis bilaterally, correlating with (unknown) (no (unknown) (unknown) triangular-shaped (units (unknown) date) unknown) (unknown) (no (unknown) (unknown) uptake in (units (unkn own) date) unknown) (unknown) (no (unknown) (unknown) vertex to (units (unkn own) date) unknown) (unknown) (no (unknown) (unknown) were (units (unkno wn) date) unknown) (unknown) (no (unknown) (unknown) with and without (units (unknown) date) contrast can be unknown) obtained. (unknown) (no (unknown) (unknown) with presumable (units (unknown) date) stents. unknown) (unknown) (no (unknown) (unknown) with (units (unkno wn) date) unknown) Result panel 2 (unknown) (no date) (unknown) (unknown) > 60 ml/min (unkn own) (unknown) (no date) (unknown) (unknown) > 60 ml/min (unkn own) (unknown) (no date) (unknown) (unknown) 0.65 mg/dl (unkn own) Social History No information. Vital Signs No information.
--- NOTE | 2022-06-23 13:10 | ED Physician Documentation ---
PD HPI HEENT - Stated complaint Stated Complaint: BILAT EAR CLOGGED - Chief complaint Chief Complaint: Heent - History obtained from History obtained from: Patient, Family - Additional information Additional information: The patient is brought to the emergency department by his for chief complaint of ears clogged and popping. Patient has chronically clogged ears and cerumen buildup and the states they were trying to use the NeilMed earwax dissolve or to clear the ears last night. The patient states that since doing that, he has noticed a popping, bubbling sound in his ears. The clogging did not resolve. The patient states he tried plugging his nose and pressurizing his ears by Valsalva maneuver, but it did not help. He denies ear pain. No vertigo. No other complaints at this time. PD PAST MEDICAL HISTORY - Past Medical History Cardiovascular: Hypertension, High cholesterol Endocrine/Autoimmune: Type 2 diabetes : Other HEENT: Chronic vision loss Psych: Post traumatic stress disorder - Past Surgical History Past Surgical History: Yes Ortho: Other HEENT: Tonsil/Adenoidectomy - Present Medications Home Medications: Ambulatory Orders Medication Instructions Recorded Confirmed Atorvastatin [Lipitor] 50 mg PO DAILY 07/18/13 05/24/22 Apalutamide [Erleada] 60 mg PO DAILY 07/05/20 05/24/22 Cholecalciferol (Vitamin D3) See Rx Instructions .ROUTE .COMPLEX 03/28/22 05/24/22 [Vitamin D3] Losartan Potassium [Cozaar] See Rx Instructions .ROUTE .COMPLEX 03/28/22 05/24/22 Magnesium See Rx Instructions .ROUTE .COMPLEX 03/28/22 05/24/22 Metformin HCl [Metformin ER See Rx Instructions .ROUTE .COMPLEX 03/28/22 05/24/22 Osmotic] - Allergies Allergies/Adverse Reactions: Allergies Allergy/AdvReac Type Severity Reaction Status Date / Time influenza virus vaccine, AdvReac Severe Unknown Verified 06/23/22 11:29 specific [Influenza Virus Vacc,Specific] - Social History Does the pt smoke?: Yes Smoking Status: Current every day smoker Does the pt drink ETOH?: Yes Does the pt have substance abuse?: No - Immunizations Immunizations are current?: No - POLST Patient has POLST: No PD ED PE NORMAL - Vitals Vital signs reviewed: Yes - General General: Alert and oriented X 3, No acute distress, Well developed/nourished - HEENT HEENT: Atraumatic, PERRL, EOMI, Moist mucous membranes, Other (Light yellow cerumen occluding both external auditory canals.) - Neck Neck: Supple, no meningeal sign - Respiratory Respiratory: No respiratory distress - Derm Derm: Normal color, Warm and dry, No rash - Extremities Extremities: No deformity - Neuro Neuro: Alert and oriented X 3 - Psych Psych: Normal mood, Normal affect Results - Vitals Vitals: Vital Signs - 24 hr 06/23/22 06/23/22 11:26 14:02 Temperature 36.7 C Heart Rate 56 L 55 L Respiratory 18 16 Rate Blood Pressure 140/49 H 145/87 H O2 Saturation 97 98 Oxygen O2 Source Room air PD Medical Decision Making - ED course Complexity details: considered differential, d/w patient ED course: The patient's ears were irrigated in the emergency department and large chunks of cerumen were noted to wash out. The patient reported great improvement in his hearing, and external auditory canals were clear after this. The patient was deemed stable for discharge home. Departure - Departure Disposition: 01 Home, Self Care Clinical Impression: Impacted cerumen of both ears Condition: Stable Instructions: Earwax Impacted, ED Wax Ear Home Removal Comments: Your ears have been cleaned today. It is most effective if you do an ear wash more regularly, say every week, to avoid such buildup of the wax. The more the wax builds up in the longer it is allowed to sit, the harder it is to get it out. In the future, if you were concerned about your ears getting clogged up or need them checked, please make an appointment with your primary doctor. This is not an medical emergency and should not be dealt with in the emergency department. Discharge Date/Time: 06/23/22 14:03
[2022-06-23 14:03] VITALS: BP 145/87
== END 2022-06-23 14:03 | disposition home or self-care (01) ==
LOC: ED 10:34
DX: H61.23 Impacted cerumen, bilateral (principal); F17.200 Nicotine dependence, unspecified, uncomplicated
CPT/HCPCS: 99282

== ENCOUNTER 2022-08-07 20:47 | Emergency (ER) | payer MEDICARE, OTHER ==
--- OUTSIDE RECORDS SUMMARY | 2022-08-07 21:11 | EXTERNAL MEDICAL SUMMARY RPT | Continuity of Care Document ---
Author Name Unknown Address [address] [place] [address] Phone Organization [facility] Address [address] [place] [address] Phone Problems date description facility 2022-06-18 10:31 Malignant neoplasm of [facility] Results/Labs test date author facility value unit interpretation Result panel 1 (unknown) (no date) (unknown) (unknown) (no value) (units unknown) (unknown) (unknown) (no date) (unknown) (unknown) 06/18/22 (units unknown) (unknown) (unknown) (no date) (unknown) (unknown) [id number] (units unknown) (unknown) (unknown) (no date) (unknown) (unknown) 1. Focal uptak e in the left humeral neck correlating with a fracture. Cannot (units unknown) (unknown) (unknown) (no date) (unknown) (unknown) 1. Normal cont our of the prostate. No retroperitoneal or pelvic adenopathy. (units unknown) (unknown) (unknown) (no date) (unknown) (unknown) [address] [place] [address] (un its unknown) (unknown) (unknown) (no date) (unknown) (unknown) 2. Extensive sclerotic metastases without pathologic fracture or spinal canal (units unknown) (unknown) (unknown) (no date) (unknown) (unknown) 2. Foci of inc reased uptake in thoracic and lumbar spine, sacrum, and bony (units unknown) (unknown) (unknown) (no date) (unknown) (unknown) 3. 1.[address] left adrenal nodule, indeterminate in the setting malignancy. (units unknown) (unknown) (unknown) (no date) (unknown) (unknown) 3. Increased activity in the proximal tibia, indeterminate. Recommend (units unknown) (unknown) (unknown) (no date) (unknown) (unknown) ABDOMEN: (units unknown) (unknown) (unknown) (no date) (unknown) (unknown) Abdominal Node s: No retroperitoneal or mesenteric adenopathy by size criteria. (units unknown) (unknown) (unknown) (no date) (unknown) (unknown) Accession Numb er: [id number] (units unknown) (unknown) (unknown) (no date) (unknown) (unknown) Accession Numb er: [id number] (units unknown) (unknown) (unknown) (no date) (unknown) (unknown) Adrenal Glands : 1.4 centimeter left adrenal nodule. (units unknown) (unknown) (unknown) (no date) (unknown) (unknown) After the administration of oral and intravenous contrast, axial sections (units unknown) (unknown) (unknown) (no date) (unknown) (unknown) Age/Sex: 81 / M Date of Service: (units unknown) (unknown) (unknown) (no date) (unknown) (unknown) [place] [address] (units unknown) (unknown) (unknown) (no date) (unknown) (unknown) Approved by: Norma Kang M.D. on 06/18/2022 at 16:21 (units unknown) (unknown) (unknown) (no date) (unknown) (unknown) Approved by: Ledy Weldon M.D. on 06/18/2022 at 13:46 (units unknown) (unknown) (unknown) (no date) (unknown) (unknown) Axillae: No en larged lymph nodes. (units unknown) (unknown) (unknown) (no date) (unknown) (unknown) Biliary ducts: Unremarkable. (units unknown) (unknown) (unknown) (no date) (unknown) (unknown) Bladder: Unremarkable. (units unknown) (unknown) (unknown) (no date) (unknown) (unknown) Bones: Extensi ve sclerotic metastatic disease. No measurable soft tissue (units unknown) (unknown) (unknown) (no date) (unknown) (unknown) CHEST: (units unknown) (unknown) (unknown) (no date) (unknown) (unknown) COMPARISON: [facility], CT, CT CHEST ABD PEL W CON, 06/18/2022, 12:13. (units unknown) (unknown) (unknown) (no date) (unknown) (unknown) COMPARISON: None. (u nits unknown) (unknown) (unknown) (no date) (unknown) (unknown) CT Scan Report (unit s unknown) (unknown) (unknown) (no date) (unknown) (unknown) Chest Wall: Gynecomastia. (units unknown) (unknown) (unknown) (no date) (unknown) (unknown) Consider dedic ated CT or MRI (adrenal mass protocol). (units unknown) (unknown) (unknown) (no date) (unknown) (unknown) : 0 Acct:[id number] (units unknown) (unknown) (unknown) (no date) (unknown) (unknown) Delayed whole- body scintigrams were obtained approximately 3-4 hours after (units unknown) (unknown) (unknown) (no date) (unknown) (unknown) Dictated by: Norma Kang M.D. on 06/18/2022 at 16:12 (units unknown) (unknown) (unknown) (no date) (unknown) (unknown) Dictated by: Ledy Weldon M.D. on 06/18/2022 at 13:41 (units unknown) (unknown) (unknown) (no date) (unknown) (unknown) Esophagus: No wall thickening. No hiatal hernia. (units unknown) (unknown) (unknown) (no date) (unknown) (unknown) FINDINGS: Ther e is a focal uptake in the left humeral neck, suspicious for (units unknown) (unknown) (unknown) (no date) (unknown) (unknown) FINDINGS: (units unknown) (unknown) (unknown) (no date) (unknown) (unknown) Gallbladder: Unremarkable. (units unknown) (unknown) (unknown) (no date) (unknown) (unknown) Heart: Heart s ize is normal. No pericardial effusion. Three-vessel coronary (units unknown) (unknown) (unknown) (no date) (unknown) (unknown) IMPRESSION: (units unknown) (unknown) (unknown) (no date) (unknown) (unknown) INDICATIONS: Prostate Cancer (units unknown) (unknown) (unknown) (no date) (unknown) (unknown) Image quality: Excellent. (units unknown) (unknown) (unknown) (no date) (unknown) (unknown) [facility] (uni ts unknown) (unknown) (unknown) (no date) (unknown) (unknown) Kidneys and Ur eters: Unremarkable. (units unknown) (unknown) (unknown) (no date) (unknown) (unknown) Liver: Unremarkable. (units unknown) (unknown) (unknown) (no date) (unknown) (unknown) Loc: [facility] (units unknown) (unknown) (unknown) (no date) (unknown) (unknown) Lower Neck: No enlarged lymph nodes. (units unknown) (unknown) (unknown) (no date) (unknown) (unknown) Lungs and Airw ays: Moderate centrilobular emphysema. 4.5 millimeter (units unknown) (unknown) (unknown) (no date) (unknown) (unknown) Mediastinum an d Fadia: No enlarged lymph nodes. (units unknown) (unknown) (unknown) (no date) (unknown) (unknown) Miscellaneous: No inguinal hernias are seen. (units unknown) (unknown) (unknown) (no date) (unknown) (unknown) Nuclear Medici ne Report (units unknown) (unknown) (unknown) (no date) (unknown) (unknown) Ordering Provi elda: Khadijah De La Torre MD (units unknown) (unknown) (unknown) (no date) (unknown) (unknown) PELVIS: (units unknown) (unknown) (unknown) (no date) (unknown) (unknown) PROCEDURE: CT CHEST ABD PEL W CON (units unknown) (unknown) (unknown) (no date) (unknown) (unknown) PROCEDURE: NM BONE SCAN WHOLE BODY (units unknown) (unknown) (unknown) (no date) (unknown) (unknown) Pancreas: Unremarkable. (units unknown) (unknown) (unknown) (no date) (unknown) (unknown) Patient: Dwight Montejo MR#: [id number] (units unknown) (unknown) (unknown) (no date) (unknown) (unknown) Pelvic Nodes: No enlarged lymph nodes. (units unknown) (unknown) (unknown) (no date) (unknown) (unknown) Pelvic Organs: Prostate is mildly enlarged. Normal contour. (units unknown) (unknown) (unknown) (no date) (unknown) (unknown) Peritoneum: No abnormal intraperitoneal fluid. No free air. (units unknown) (unknown) (unknown) (no date) (unknown) (unknown) Pleura: No pneumothorax or pleural effusions. (units unknown) (unknown) (unknown) (no date) (unknown) (unknown) Procedure: CT chest abd pel w con (units unknown) (unknown) (unknown) (no date) (unknown) (unknown) Procedure: NM bone scan whole body (units unknown) (unknown) (unknown) (no date) (unknown) (unknown) RADIOPHARMACEU TICAL: 20.7 mCi Tc-99m MDP IV. (units unknown) (unknown) (unknown) (no date) (unknown) (unknown) Signed (units unknown) (unknown) (unknown) (no date) (unknown) (unknown) Spleen: Spleni c granuloma. (units unknown) (unknown) (unknown) (no date) (unknown) (unknown) Stomach and Garcia wel: Stomach, small bowel loops, and colon are unremarkable. (units unknown) (unknown) (unknown) (no date) (unknown) (unknown) TECHNIQUE: (units unknown) (unknown) (unknown) (no date) (unknown) (unknown) There is a fra cture in the left humeral neck. There are foci of increased (units unknown) (unknown) (unknown) (no date) (unknown) (unknown) Thoracic Vesse ls: The aorta and pulmonary arteries demonstrate normal size. (units unknown) (unknown) (unknown) (no date) (unknown) (unknown) Thyroid: Withi n normal limits. (units unknown) (unknown) (unknown) (no date) (unknown) (unknown) Ventral Wall: No hernia. (units unknown) (unknown) (unknown) (no date) (unknown) (unknown) Vessels: Aorta and inferior vena cava are normal in size. Extensive (units unknown) (unknown) (unknown) (no date) (unknown) (unknown) acquired from (units unknown) (unknown) (unknown) (no date) (unknown) (unknown) atherosclerotic (uni ts unknown) (unknown) (unknown) (no date) (unknown) (unknown) bone lesions s een on CT, consistent with metastasis to spine could be obscured (units unknown) (unknown) (unknown) (no date) (unknown) (unknown) by (units unknown) (unknown) (unknown) (no date) (unknown) (unknown) component. No (units unknown) (unknown) (unknown) (no date) (unknown) (unknown) consistent wit h degenerative/arthrit ic changes. Increased activity is noted in (units unknown) (unknown) (unknown) (no date) (unknown) (unknown) control, adjus tment of mA and/or kV according to patient size. (units unknown) (unknown) (unknown) (no date) (unknown) (unknown) correlating wi th sclerotic bone lesions seen on the comparison CT, consistent (units unknown) (unknown) (unknown) (no date) (unknown) (unknown) correlation. (units unknown) (unknown) (unknown) (no date) (unknown) (unknown) degenerative changes. Foci of increased activity in maxilla and mandible are (units unknown) (unknown) (unknown) (no date) (unknown) (unknown) disease, (units unknown) (unknown) (unknown) (no date) (unknown) (unknown) disease. (units unknown) (unknown) (unknown) (no date) (unknown) (unknown) exposure (units unknown) (unknown) (unknown) (no date) (unknown) (unknown) feet. (units unknown) (unknown) (unknown) (no date) (unknown) (unknown) impingement. (units unknown) (unknown) (unknown) (no date) (unknown) (unknown) indicated, MRI (unit s unknown) (unknown) (unknown) (no date) (unknown) (unknown) injection of radiotracer. Anterior and posterior views were acquired from (units unknown) (unknown) (unknown) (no date) (unknown) (unknown) intrapulmonary (unit s unknown) (unknown) (unknown) (no date) (unknown) (unknown) intravenous (units unknown) (unknown) (unknown) (no date) (unknown) (unknown) lymph node. No suspicious pulmonary nodules. (units unknown) (unknown) (unknown) (no date) (unknown) (unknown) metastases. (units unknown) (unknown) (unknown) (no date) (unknown) (unknown) metastasis. (units unknown) (unknown) (unknown) (no date) (unknown) (unknown) most likely (units unknown) (unknown) (unknown) (no date) (unknown) (unknown) nodule with pl eural tail in the anterior right upper lobe, presumably an (units unknown) (unknown) (unknown) (no date) (unknown) (unknown) pathological fracture. Recommend clinical correlation. If clinically (units unknown) (unknown) (unknown) (no date) (unknown) (unknown) pelvis, (units unknown) (unknown) (unknown) (no date) (unknown) (unknown) performed. For radiation dose reduction, the following was used: automated (units unknown) (unknown) (unknown) (no date) (unknown) (unknown) proximal left tibia. (units unknown) (unknown) (unknown) (no date) (unknown) (unknown) radiographic (units unknown) (unknown) (unknown) (no date) (unknown) (unknown) rule out (units unknown) (unknown) (unknown) (no date) (unknown) (unknown) sclerotic (units unknown) (unknown) (unknown) (no date) (unknown) (unknown) secondary to d ental disease. There are foci of increased periarticular activity (units unknown) (unknown) (unknown) (no date) (unknown) (unknown) spinal canal impingement. (units unknown) (unknown) (unknown) (no date) (unknown) (unknown) the supraclavi cular neck to the pubic symphysis. Coronal and sagittal reformats (units unknown) (unknown) (unknown) (no date) (unknown) (unknown) the (units unknown) (unknown) (unknown) (no date) (unknown) (unknown) thoracic and l umbar spine, sacrum, bony pelvis bilaterally, correlating with (units unknown) (unknown) (unknown) (no date) (unknown) (unknown) triangular-shaped (u nits unknown) (unknown) (unknown) (no date) (unknown) (unknown) uptake in (units unknown) (unknown) (unknown) (no date) (unknown) (unknown) vertex to (units unknown) (unknown) (unknown) (no date) (unknown) (unknown) were (units unknown) (unknown) (unknown) (no date) (unknown) (unknown) with and witho ut contrast can be obtained. (units unknown) (unknown) (unknown) (no date) (unknown) (unknown) with presumabl e stents. (units unknown) (unknown) (unknown) (no date) (unknown) (unknown) with (units unknown) (unknown) Result panel 2 (unknown) (no date) (unknown) (unknown) > 60 ml/min (unknown ) (unknown) (no date) (unknown) (unknown) > 60 ml/min (unknown ) (unknown) (no date) (unknown) (unknown) 0.65 mg/dl (unknown )
--- NOTE | 2022-08-07 21:22 | ED Physician Documentation ---
History of Present Illness - Stated complaint Stated Complaint: AMS - Chief complaint Chief Complaint: General - History obtained from History obtained from: Family - Additonal information Additional information: 81-year-old gentleman with history of metastatic prostate cancer and dementia. He is brought in by his daughter for altered mental status. Most of the history is from the daughter and the by phone as the patient is quite confused. Family states that maybe a month ago he would only have very mild dementia, for example knowing the date and managing his ADLs. Over the last 2 weeks and especially over the last day has developed significant confusion and started swearing at the tonight which is very atypical for him. PD PAST MEDICAL HISTORY - Past Medical History Cardiovascular: Hypertension, High cholesterol Endocrine/Autoimmune: Type 2 diabetes : Other HEENT: Chronic vision loss Psych: Post traumatic stress disorder - Past Surgical History Past Surgical History: Yes Ortho: Other HEENT: Tonsil/Adenoidectomy - Present Medications Home Medications: Ambulatory Orders Medication Instructions Recorded Confirmed Atorvastatin [Lipitor] 50 mg PO DAILY 07/18/13 07/19/22 Apalutamide [Erleada] 60 mg PO DAILY 07/05/20 07/19/22 Cholecalciferol (Vitamin D3) See Rx Instructions .ROUTE .COMPLEX 03/28/22 07/19/22 [Vitamin D3] Losartan Potassium [Cozaar] See Rx Instructions .ROUTE .COMPLEX 03/28/22 07/19/22 Magnesium See Rx Instructions .ROUTE .COMPLEX 03/28/22 07/19/22 Metformin HCl [Metformin ER See Rx Instructions .ROUTE .COMPLEX 03/28/22 07/19/22 Osmotic] QUEtiapine [SEROquel] 25 mg PO QPM #30 tablet 08/07/22 - Allergies Allergies/Adverse Reactions: Allergies Allergy/AdvReac Type Severity Reaction Status Date / Time influenza virus vaccine, AdvReac Severe Unknown Verified 08/07/22 20:59 specific [Influenza Virus Vacc,Specific] - Social History Does the pt smoke?: Yes Smoking Status: Current every day smoker Does the pt drink ETOH?: Yes Does the pt have substance abuse?: No - Immunizations Immunizations are current?: No - POLST Patient has POLST: No PD ED PE NORMAL - Vitals Vital signs reviewed: Yes - General General: No acute distress, Other (He is alert and oriented to person but not place time or events. He can come up with his 's first name. When I ask him who his daughter is he says the "the next 1." When asked his age he answered 42.) - HEENT HEENT: PERRL, EOMI - Neck Neck: Supple, no meningeal sign, No bony TTP - Cardiac Cardiac: RRR, No murmur - Respiratory Respiratory: No respiratory distress, Clear bilaterally - Abdomen Abdomen: Soft, Non tender - Neuro Neuro: No motor deficit, No sensory deficit Eye Opening: Spontaneous Motor: Obeys Commands Verbal: Confused GCS Score: 14 Results - Vitals Vitals: Vital Signs - 24 hr 08/07/22 20:59 Temperature 36.5 C Heart Rate 68 Respiratory 16 Rate Blood Pressure 159/53 H O2 Saturation 99 Oxygen O2 Source Room air - Labs Labs: Laboratory Tests 08/07/22 08/07/22 08/07/22 21:51 21:51 21:51 WBC 7.2 RBC 4.43 L Hgb 13.5 L Hct 40.9 L MCV 92.3 MCH 30.5 MCHC 33.0 RDW 11.9 L Plt Count 214 MPV 11.2 Neut # (Auto) 4.3 Lymph # (Auto) 1.8 [place] # (Auto) 0.9 Eos # (Auto) 0.0 Baso # (Auto) 0.0 Absolute Nucleated RBC 0.00 Nucleated RBC % 0.0 Sodium 139 Potassium 3.9 Chloride 102 Carbon Dioxide 29 Anion Gap 8.0 BUN 28 H Creatinine 0.9 Estimated GFR (MDRD) 81 L Glucose 111 H Calcium 9.3 Magnesium 2.3 Total Bilirubin 0.3 AST 14 ALT 11 Alkaline Phosphatase 49 Total Protein 6.8 Albumin 4.4 Globulin 2.4 Albumin/Globulin Ratio 1.8 Urine Color YELLOW Urine Clarity CLEAR Urine pH 5.0 Ur Specific [place] >=1.030 H Urine Protein NEGATIVE Urine Glucose (UA) NEGATIVE Urine Ketones NEGATIVE Urine Occult Blood NEGATIVE Urine Nitrite NEGATIVE Urine Bilirubin NEGATIVE Urine Urobilinogen 0.2 (NORMAL) Ur Leukocyte Esterase NEGATIVE Ur Microscopic Review NOT INDICATED Urine Culture Comments NOT INDICATED Urine Opiates Screen NEGATIVE Ur Oxycodone Screen NEGATIVE Urine Methadone Screen NEGATIVE Ur Propoxyphene Screen NEGATIVE Ur Barbiturates Screen NEGATIVE Ur Tricyclics Screen NEGATIVE Ur Phencyclidine Scrn NEGATIVE Ur Amphetamine Screen NEGATIVE U Methamphetamines Scrn NEGATIVE U Benzodiazepines Scrn NEGATIVE Urine Cocaine Screen NEGATIVE U Cannabinoids Screen NEGATIVE Ethyl Alcohol < 5.0 - Rads (name of study) CT head without acute abnormality. He does have multiple small areas of pr ior small infarcts. Relevant Findings:: Final report received, EMP independent interpretation of test PD Medical Decision Making - ED course ED course: 81-year-old gentleman with dementia presents with worsening dementia acutely. That said, talking to daughter, she states he only scored a 3 out of 30 on the MMSE 6 months ago. There is nothing focal on exam here. His work-up demonstrates a fairly normal CBC save mild anemia. Chemistry panel grossly normal. Urinalysis normal. Talk screen is negative. Head CT showing chronic ischemic changes but nothing acute. Discussed with daughter options. At this point after thorough discussion she would like to take him home but she would like us to place a hospice consult which I will do and I will email our hospice medical reviewer. We will go ahead and start Seroquel for agitated dementia. Departure - Departure Disposition: 01 Home, Self Care Clinical Impression: Prostate cancer metastatic to bone, Alzheimer's dementia with agitation Condition: Stable Record reviewed to determine appropriate education?: Yes Instructions: ED Dementia Caregiver Support, Hospice Start Prescriptions: QUEtiapine [SEROquel] 25 mg PO QPM #30 tablet Comments: Dontrell was seen today for agitated dementia. There is no sign of stroke, infection, or hypercalcemia. Per discussion, we are starting very low-dose Seroquel for his agitation and he received a first dose here tonight. I am placing a referral for our hospice medical reviewer and he should also have his [facility] called tomorrow. Also recommend you fill out a POLST form with your physician. Return for new or worsening symptoms.
--- NOTE | 2022-08-07 21:52 | CT Report ---
PROCEDURE: HEAD WO INDICATIONS: ams TECHNIQUE: Noncontrast 4.5 mm thick angled axial sections acquired from the foramen magnum to the vertex. For r adiation dose reduction, the following was used: automated exposure control, adjustment of mA and/or kV according to patient size. COMPARISON: CT head 11/26/2021. FINDINGS: Image quality: There is motion artifact limiting evaluation. CSF spaces: There is moderate cerebral volume loss with prominence of the ventricles and sulci. Basa l cisterns are patent. No extra-axial fluid collections. Brain: No definite intracranial hemorrhage, mass, or mass effect. There are small areas of encephalo malacia demonstrated within the bilateral posterior parietal lobes consistent with sequelae of prior infarcts. The findings are new compared to the prior CT. There are subcortical and periventricular wh ite matter hypodensities consistent with moderate chronic small vessel ischemic changes. Skull and face: Calvarium and visualized facial bones are intact, without suspicious lesions. Sinuses: Visualized sinuses and partial mucosal thickening within the ethmoid sinuses. Mastoid air c ells are clear. IMPRESSION: 1. Limited study demonstrates no definite acute intracranial abnormality. 2. Bilateral small areas of cortical encephalomalacia involving the posterior parietal lobes consiste nt with prior infarcts in the bilateral watershed territories. Reviewed by: Dawit Tipton MD on 08/07/2022 9:51 PM PDT Approved by: Dawit Tipton MD on 08/07/2022 9:51 PM PDT Station ID: [id number]
[2022-08-07 22:09] LABS: MUDS CUTOFF CONCENTRATIONS CUTOFF CONC BELOW:
[2022-08-07 22:10] LABS: BASOPHILS % (AUTO) 0.4 %; EOSINOPHILS % (AUTO) 0.3 %; HCT - HEMATOCRIT 40.9 % (42.0-52.0); HGB - HEMOGLOBIN 13.5 g/dL (14.0-18.0); LYMPHOCYTES # (AUTO) 1.8 10^3/uL (1.5-3.5); LYMPHOCYTES % (AUTO) 25.7 %; MEAN CORPUSCULAR HEMOGLOBIN 30.5 pg (27.0-31.0); MEAN CORPUSCULAR VOLUME 92.3 fL (80.0-94.0); MEAN PLATELET VOLUME 11.2 fL (7.4-11.4); MONOCYTES # (AUTO) 0.9 10^3/uL (0.0-1.0); MONOCYTES % (AUTO) 12.8 %; NEUTROPHILS # (AUTO) 4.3 10^3/uL (1.5-6.6); NEUTROPHILS % (AUTO) 60.5 %; PLT - PLATELET COUNT 214 10^3/uL (130-450); RED BLOOD COUNT 4.43 10^6/uL (4.70-6.10); RED CELL DISTRIBUTION WIDTH 11.9 % (12.0-15.0); WHITE BLOOD COUNT 7.2 x10^3/uL (4.8-10.8)
[2022-08-07 22:12] LABS: BILIRUBIN,URINE NEGATIVE (NEGATIVE); CLARITY,URINE CLEAR (CLEAR); GLUCOSE, URINE (UA) NEGATIVE (NEGATIVE); KETONES,URINE (UA) NEGATIVE (NEGATIVE); LEUKOCYTE ESTERASE, URINE NEGATIVE (NEGATIVE); NITRITE,URINE NEGATIVE (NEGATIVE); OCCULT BLOOD,URINE NEGATIVE (NEGATIVE); PROTEIN,URINE NEGATIVE (NEGATIVE); UROBILINOGEN,URINE 0.2 (NORMAL) E.U./dL (NORMAL)
[2022-08-07 22:20] LABS: AMPHETAMINE SCREEN,URINE NEGATIVE (NEGATIVE); BARBITURATE SCREEN,UR NEGATIVE (NEGATIVE); BENZODIAZEPINES SCREEN, URINE NEGATIVE (NEGATIVE); COCAINE SCREEN URINE NEGATIVE (NEGATIVE); METHADONE SCREEN, URINE NEGATIVE (NEGATIVE); METHAMPHETAMINES SCREEN, URINE NEGATIVE (NEGATIVE); OPIATE SCREEN, URINE NEGATIVE (NEGATIVE); OXYCODONE SCREEN, URINE NEGATIVE (NEGATIVE); PROPOXYPHENE SCREEN, URINE NEGATIVE (NEGATIVE); THC CANNABINOID SCREEN, URINE NEGATIVE (NEGATIVE); TRICYCLIC ANTIDEPRESSANT,URINE NEGATIVE (NEGATIVE)
[2022-08-07 22:22] LABS: ALBUMIN 4.4 g/dL (3.2-5.5); ALBUMIN/GLOBULIN RATIO 1.8 (1.0-2.2); ALKALINE PHOSPHATASE 49 IU/L (42-121); ALT ALANINE AMINOTRANSFERASE 11 IU/L (10-60); AST ASPARTATE AMINOTRANSFERASE 14 IU/L (10-42); BILIRUBIN,TOTAL 0.3 mg/dL (0.2-1.0); BUN - BLOOD UREA NITROGEN 28 mg/dL (6-20); CALCIUM 9.3 mg/dL (8.5-10.3); CARBON DIOXIDE - CO2 29 mmol/L (21-32); CHLORIDE 102 mmol/L (101-111); CREATININE 0.9 mg/dL (0.6-1.2); ETOH - ETHANOL < 5.0 mg/dL; GFR - MDRD 81 (>89); GLUCOSE 111 mg/dL (70-100); MAGNESIUM 2.3 mg/dL (1.7-2.8); POTASSIUM 3.9 mmol/L (3.5-5.0); SODIUM 139 mmol/L (135-145); TOTAL PROTEIN 6.8 g/dL (6.7-8.2)
[2022-08-07] MEDS ORDERED: QUEtiapine 25 MG TABLET PO STA (22:43)
[2022-08-07 23:03] VITALS: BP 145/54
== END 2022-08-07 23:02 | disposition home or self-care (01) ==
LOC: ED 20:47
DX: C61 Malignant neoplasm of prostate (principal); C79.51 Secondary malignant neoplasm of bone; G30.9 Alzheimer's disease, unspecified; F02.811 Dementia in other diseases classified elsewhere, unspecified severity, with agitation; F17.200 Nicotine dependence, unspecified, uncomplicated; I10 Essential (primary) hypertension; E78.00 Pure hypercholesterolemia, unspecified; E11.9 Type 2 diabetes mellitus without complications; Z79.899 Other long term (current) drug therapy; Z79.84 Long term (current) use of oral hypoglycemic drugs
CPT/HCPCS: 36415; 51701; 70450; 80053; 80306; 81003; 83735; 85025; 99284; A9270; G0480; 80320; 81001; 87086

== ENCOUNTER 2022-08-11 02:51 | Outpatient (CLI) | payer MEDICARE, OTHER | END 2022-08-11 14:24 | disposition EMS.NT | LOC: EMS 02:51 | DX: Z03.89 Encounter for observation for other suspected diseases and conditions ruled out (principal) ==

== ENCOUNTER 2022-08-16 15:37 | Outpatient (CLI) | payer MEDICARE, OTHER | END 2022-08-16 23:59 | disposition E | LOC: EMS 15:37 ==